=== PATIENT | female | born 1950 | race Caucasian/White ===

== ENCOUNTER → 2017-11-13 10:16 | Outpatient (CLI) | payer MEDICARE, MEDICAID, SELFPAY ==
[2017-11-13 11:05] LABS: Basophils # 0.1 K/mm3 (0-0.2); Eosinophils # 0.5 K/mm3 (0.0-0.4); Eosinophils % 5.5 % (0.1-12.0); Hematocrit 42.2 % (37.0-47.0); Hemoglobin 13.8 g/dL (12.2-16.2); Lymphocytes # 3.8 K/mm3 (0.7-4.5); Lymphocytes % 41.6 K/mm3 (10-50); Mean Corpuscular HGB Conc 32.7 g/dL (31.8-35.4); Mean Corpuscular Hemoglobin 30.1 pg (27.0-31.2); Mean Corpuscular Volume 92.2 fl (81-99); Mean Platelet Volume 9.2 fl (7.4-10.4); Monocytes # 0.4 K/mm3 (0.1-1.0); Monocytes % 4.6 % (1.7-9.3); Neutrophils # 4.3 K/mm3 (1.8-7.8); Neutrophils % 47.4 % (37.0-80.0); Platelet Count 239 K/mm3 (142-424); Red Blood Count 4.58 M/mm3 (4.20-5.40); Red Cell Distribution Width 13.1 % (11.5-17.5)
[2017-11-13 12:30] LABS: Alanine Aminotransferase 30 U/L (12-78); Albumin Level 3.9 gm/dL (3.4-5.0); Albumin/Globulin Ratio 1.1 (1.1-1.8); Alkaline Phosphatase 110 U/L (46-116); Anion Gap 10.2 mEq/L (5-15); Aspartate Amino Transferase 18 U/L (15-37); Bilirubin,Total 0.6 mg/dL (0.2-1.0); Blood Urea Nitrogen 23 mg/dL (7-18); Calcium 9.2 mg/dL (8.5-10.1); Carbon Dioxide 33 mmol/L (21.0-32.0); Chloride 106 mmol/L (98-107); Chol/HDL Ratio 3.5 (1-3.5); Cholesterol 162 mg/dL (140-200); Creatinine,Serum 1.18 mg/dL (0.55-1.02); Estimated Glomerular Filt Rate 46 ml/min (>60); GFR (African American) 55 ML/MIN (>60); Globulin 3.5 gm/dl (1.3-3.2); Glucose 104 mg/dL (74-106); HDL Cholesterol 46 mg/dL (29-89); LDL Cholesterol 85 mg/dL (0-130); Potassium 5.2 mmoL/L (3.5-5.1); Sodium 144 mmol/L (136-145); Thyroid Stimulating Hormone 1.16 uIU/ml (0.358-3.740); Total Protein,Serum 7.4 gm/dL (6.4-8.2); Triglycerides 155 mg/dL (30-200); VLDL Cholesterol 31 mg/dL (0-40)
[2017-11-13 12:42] LABS: Erythrocyte Sedimentation Rate 22 mm/hr (0-30)
== END ==
PROVIDERS: PCP Internal Medicine Adolescent Medicine; Visit Provider Internal Medicine Adolescent Medicine
DX: M10.9 Gout, unspecified (principal); E78.5 Hyperlipidemia, unspecified; Z79.899 Other long term (current) drug therapy; E03.9 Hypothyroidism, unspecified
CPT/HCPCS: 36415; 80053; 80061; 84443; 84550; 85025; 85651

== ENCOUNTER → 2018-03-15 09:59 | Outpatient (CLI) | payer MEDICARE, MEDICAID, SELFPAY ==
--- NOTE | 2018-03-15 10:43 | XR_ITS ---
XR knee LT 3V HISTORY: ITS.REASON: OSTEOARTHRITIS ORDERING PHYSICIAN: Neftaly Gloria MD PATIENT AGE: 67 years COMPARISON: None FINDINGS: No fracture or dislocation. No lytic or blastic change. Normal mineralization. No significant arthritic changes evident. No other significant findings IMPRESSION: Negative left Knee
--- NOTE | 2018-03-15 10:43 | XR_ITS ---
XR knee RT 3V HISTORY: ITS.REASON: OSTEOARTHRITIS ORDERING PHYSICIAN: Neftaly Gloria MD PATIENT AGE: 67 years COMPARISON: None FINDINGS: No fracture or dislocation. No lytic or blastic change. Normal mineralization. Minimal osteoarthritic changes present involving the medial compartment with slight decrease in joint space and minimal osteophyte formation. IMPRESSION: Minimal osteoarthritis medial compartment otherwise negative right knee
[2018-03-15 10:47] LABS: Basophils # 0.1 K/mm3 (0-0.2); Basophils % 0.8 % (0.1-2.0); Eosinophils # 0.5 K/mm3 (0.0-0.4); Eosinophils % 5.9 % (0.1-12.0); Hematocrit 43.6 % (37.0-47.0); Hemoglobin 13.6 g/dL (12.2-16.2); Lymphocytes # 3.1 K/mm3 (0.7-4.5); Lymphocytes % 38.1 K/mm3 (10-50); Mean Corpuscular HGB Conc 31.2 g/dL (31.8-35.4); Mean Corpuscular Volume 92.8 fl (81-99); Mean Platelet Volume 8.6 fl (7.4-10.4); Monocytes # 0.5 K/mm3 (0.1-1.0); Monocytes % 6.6 % (1.7-9.3); Neutrophils % 48.6 % (37.0-80.0); Platelet Count 220 K/mm3 (142-424); Red Cell Distribution Width 13.1 % (11.5-17.5); White Blood Count 8.1 K/mm3 (4.8-10.8)
[2018-03-15 11:53] LABS: Alanine Aminotransferase 28 U/L (12-78); Albumin Level 3.8 gm/dL (3.4-5.0); Albumin/Globulin Ratio 1.1 (1.1-1.8); Alkaline Phosphatase 111 U/L (46-116); Anion Gap 11.5 mEq/L (5-15); Aspartate Amino Transferase 19 U/L (15-37); Bilirubin,Total 0.5 mg/dL (0.2-1.0); Blood Urea Nitrogen 20 mg/dL (7-18); Calcium 9.4 mg/dL (8.5-10.1); Carbon Dioxide 31 mmol/L (21.0-32.0); Chloride 106 mmol/L (98-107); Chol/HDL Ratio 4.2 (1-3.5); Cholesterol 191 mg/dL (140-200); Estimated Glomerular Filt Rate 50 ml/min (>60); GFR (African American) 60 ML/MIN (>60); Globulin 3.4 gm/dl (1.3-3.2); Glucose 102 mg/dL (74-106); HDL Cholesterol 46 mg/dL (29-89); LDL Cholesterol 111 mg/dL (0-130); Potassium 4.5 mmoL/L (3.5-5.1); Sodium 144 mmol/L (136-145); Thyroid Stimulating Hormone 2.28 uIU/ml (0.358-3.740); Total Protein,Serum 7.2 gm/dL (6.4-8.2); Triglycerides 172 mg/dL (30-200); Uric Acid 6.3 mg/dL (2.6-7.2); VLDL Cholesterol 34 mg/dL (0-40)
== END ==
PROVIDERS: Visit Provider Internal Medicine Adolescent Medicine
DX: E78.5 Hyperlipidemia, unspecified (principal); E03.9 Hypothyroidism, unspecified; M10.9 Gout, unspecified; M17.0 Bilateral primary osteoarthritis of knee; N28.9 Disorder of kidney and ureter, unspecified
CPT/HCPCS: 36415; 73562; 80053; 80061; 84443; 84550; 85025

== ENCOUNTER 2018-04-30 13:00 | Outpatient (RCR) | payer MEDICARE, MEDICAID, SELFPAY ==
--- NOTE | 2018-03-17 10:41 | HMH.PTOPEV ---
PT Outpatient Evaluation Rehab PT Outpatient Evaluation Start: 03/17/18 09:35 Freq: Status: Active Protocol: Document 03/17/18 10:27 FLORENTINO (Rec: 03/17/18 10:41 PHORNICOLE [id number]) Electronically Signed By Johnny Lynch, PT 03/17/18 10:27 Outpatient Therapy Subjective History Subjective History PT is 67 yof who presents with c/o pain in left knee with walking intermittently x ~ 4 mos with insidious onset of symptoms. Pt reports pain began the second day of a cruise I went on with my daughter. Pt reports pain almost exclusively with walking, but only sometimes. X -rays performed were negative for any left knee OA or fxs. She reports PMH of L5 discectomy ~ 20 yrs ago, HTN, A-fib, and thyroid cancer. Pt given heel lift for right LE due to left LE long by 7 mm . Chief Complaint Pain Symptom Type Sharp Symptoms Relieved By Rest/Positioning Symptoms Aggravated By Walking Prior Functional Limitations None Current Functional Limitations Walking Symptom Description Intermittent Activity Dependent Level of pain today (0-10) 0 Pain scale - at its worst (0-10) 8 Hip/Knee Eval Gait Observation General Gait Pattern Observation Antalgic Gait Palpation Tenderness left Knee Palpation Finding Tenderness Knee Palpation Overall Comment medial knee and greater trochanter Hip Palpation Findings Tenderness MMT right Hip Flexion Strength Grade 3 Fair Hip Abduction Strength Grade 4 Good Hip Adduction Strength Grade 4 Good Hip Extension Strength Grade 4 Good left Hip Flexion Strength Grade 4 Good Hip Abduction Strength Grade 4 Good Hip Adduction Strength Grade 4 Good Hip Extension Strength Grade 4 Good Knee Extension Strength Grade 5 Normal Knee Flexion Strength Grade 4 Good ROM Knee Flexion Active Range of Motion ( 0-110 degrees) Sensation bilateral LE Dermatome Level L5 Comment decreased Special Tests Knee Anterior Drawer Test Negative Left Stephens 90/90 Test (PCL) Negative Left Knee Anterior Isai Test Negative Left Knee Valgus Stress Test Ne
== END 2018-04-30 13:01 | disposition home or self-care (01) ==
LOC: PT 13:00
PROVIDERS: PCP Internal Medicine Adolescent Medicine; Visit Provider Internal Medicine Adolescent Medicine
DX: M25.562 Pain in left knee (principal)
CPT/HCPCS: 97010; 97014; 97033; 97110; 97140; 97163; 97760; G0283

== ENCOUNTER → 2018-08-16 19:56 | Outpatient (CLI) | payer MEDICARE, MEDICAID, SELFPAY | PROVIDERS: PCP Internal Medicine Adolescent Medicine; Visit Provider Internal Medicine Adolescent Medicine | DX: G47.33 Obstructive sleep apnea (adult) (pediatric) (principal); R06.83 Snoring; R40.0 Somnolence | CPT/HCPCS: 95810 ==

== ENCOUNTER → 2019-05-10 08:44 | Outpatient (CLI) | payer MEDICARE, MEDICAID, SELFPAY ==
--- NOTE | 2019-05-10 08:49 | XR_ITS ---
XR DEXA axial skeleton HISTORY: ITS.REASON: POST MENOPAUSAL ORDERING PHYSICIAN: Neftaly Gloria MD PATIENT AGE: 69 years COMPARISON: None FINDINGS: The BMD measured at the Right femoral neck is 1.032 g/cm squared with a T score of 0. This is considered Normal according to the World Health Organization criteria. Fracture risk is Low. IMPRESSION: Normal bone density. Recommend follow-up exam April 2021
--- NOTE | 2019-05-10 08:50 | MM_ITS ---
MM Dig screening mamm BI w/CAD CAD Screening COMPARISON: Digital mammograms with CAD 04/24/2017 INDICATION: There is no personal or family history of breast cancer. There has been previous biopsy left breast for benign disease. TECHNIQUE: Standard CC and MLO images were obtained. R2 CAD reviewed. FINDINGS: Scattered fibroglandular densities are seen in both breasts. There are stable somewhat linear and likely post biopsy scarring upper central portion left breast. There are multiple mole markers left breast. There is minimal arterial calcification right breast and there are couple benign-appearing calcifications right breast. There is no suspicious lesion and no suspicious microcalcifications. IMPRESSION: Fibrofatty parenchyma no suspicious lesion seen BI-RADS Category: 2 Benign Finding(s) RECOMMENDED FOLLOW-UP: 1YR - 1 YEAR FOLLOW-UP (A letter has been sent to the patient regarding results of the study.)
== END ==
PROVIDERS: PCP Internal Medicine Adolescent Medicine; Visit Provider Internal Medicine Adolescent Medicine
DX: Z12.31 Encounter for screening mammogram for malignant neoplasm of breast (principal); Z13.820 Encounter for screening for osteoporosis; Z78.0 Asymptomatic menopausal state
CPT/HCPCS: 77067; 77080

== ENCOUNTER → 2019-12-29 07:27 | Outpatient (CLI) | payer MEDICARE, MEDICAID, SELFPAY ==
[2019-12-29 07:53] LABS: Basophils # 0.1 K/mm3 (0-0.2); Basophils % 0.8 % (0.1-2.0); Eosinophils # 0.5 K/mm3 (0.0-0.4); Eosinophils % 4.8 % (0.1-12.0); Hematocrit 39.2 % (37.0-47.0); Hemoglobin 12.8 g/dL (12.2-16.2); Lymphocytes # 3.7 K/mm3 (0.7-4.5); Lymphocytes % 35.6 % (10-50); Mean Corpuscular HGB Conc 32.7 g/dL (31.8-35.4); Mean Corpuscular Hemoglobin 30.4 pg (27.0-31.2); Mean Corpuscular Volume 93.2 fl (81-99); Mean Platelet Volume 10.4 fl (7.4-10.4); Monocytes # 0.6 K/mm3 (0.1-1.0); Monocytes % 5.2 % (1.7-9.3); Neutrophils # 5.6 K/mm3 (1.8-7.8); Neutrophils % 53.4 % (37.0-80.0); Platelet Count 231 K/mm3 (142-424); Red Blood Count 4.21 M/mm3 (4.20-5.40); Red Cell Distribution Width 14.1 % (11.5-17.5); White Blood Count 10.4 K/mm3 (4.8-10.8)
[2019-12-29 08:14] LABS: Alanine Aminotransferase 24 U/L (12-78); Albumin/Globulin Ratio 1.4 (1.1-1.8); Alkaline Phosphatase 109 U/L (38-126); Anion Gap 11.8 mEq/L (5-15); Aspartate Amino Transferase 31 U/L (14-36); Bilirubin,Total 0.4 mg/dl (0.2-1.3); Blood Urea Nitrogen 28 mg/dl (7-17); Calcium 9.6 mg/dl (8.4-10.2); Carbon Dioxide 28 mmol/L (22.0-30.0); Chloride 105 mmol/L (98-107); Chol/HDL Ratio 4.3 (1-3.5); Cholesterol 165 mg/dl (140-200); Estimated Glomerular Filt Rate 45 ml/min (>60); GFR (African American) 54 ML/MIN (>60); Globulin 2.8 g/dL (1.3-3.2); Glucose 107 mg/dl (74-100); HDL Cholesterol 38 mg/dl (40-60); Potassium 4.8 mmoL/L (3.5-5.1); Sodium 140 mmol/L (136-145); Total Protein,Serum 6.8 g/dl (6.3-8.2); Triglycerides 325 mg/dl (30-150); Uric Acid 4.5 mg/dl (2.5-6.2); VLDL Cholesterol 65 mg/dL (0-40)
[2019-12-29 08:25] LABS: Direct LDL Cholesterol 75.88 mg/dL (100-129)
[2019-12-29 08:44] LABS: Thyroid Stimulating Hormone 0.15 uIU/mL (0.465-4.68)
== END ==
PROVIDERS: Visit Provider Internal Medicine Adolescent Medicine
DX: E78.5 Hyperlipidemia, unspecified (principal); E03.9 Hypothyroidism, unspecified; M10.9 Gout, unspecified
CPT/HCPCS: 36415; 80053; 80061; 84443; 84550; 85025

== ENCOUNTER → 2020-09-03 16:16 | Outpatient (CLI) | payer MEDICARE, MEDICAID, SELFPAY ==
--- NOTE | 2020-09-03 16:18 | MM_ITS ---
PROCEDURE: MM DIG SCREENING MAMM BI W/CAD Digital Breast Tomosynthesis Included CLINICAL INDICATION: SCREENING Personal or family history of breast cancer. Has been a previous biopsy left breast disease. COMPARISON: MG [id number] DIG MAMM-DX UNI ADD VIEWS-RT from 08/10/2015 MG DMSB DIG MAMM-SCREEN KRYSTINA W/CAD from 04/24/2017 MG DIG MAMM-SCREEN KRYSTINA from 05/10/2019 TECHNIQUE: Standard CC and MLO images and 3D Tomosynthesis was obtained. R2 CAD reviewed. FINDINGS: Scattered fibroglandular densities are seen throughout both breasts. There are 2 mole markers on each breast. There is a benign-appearing microcalcification right breast. There is no suspicious lesion in either breast and no suspicious microcalcifications. IMPRESSION: Fibrofatty parenchyma with no suspicious lesions seen BI-RAD Category: 2 Benign Finding(s) FOLLOW-UP: 1YR 1 Year Follow-up (A letter has been sent to the patient regarding results of the study.) Dictated by: Dr. Romulo Azevedo MD 09/07/2020 14:44 Dr. Romulo Azevedo MD in [place] 09/07/2020 14:44
== END ==
PROVIDERS: PCP Internal Medicine Adolescent Medicine; Visit Provider Internal Medicine Adolescent Medicine
DX: Z12.31 Encounter for screening mammogram for malignant neoplasm of breast (principal)
CPT/HCPCS: 77063; 77067

== ENCOUNTER → 2020-10-17 10:03 | Outpatient (CLI) | payer MEDICARE, MEDICAID, SELFPAY | PROVIDERS: PCP Internal Medicine Adolescent Medicine; Referring Provider Internal Medicine Adolescent Medicine; Visit Provider Internal Medicine Adolescent Medicine | DX: Z03.818 Encounter for observation for suspected exposure to other biological agents ruled out (principal) | CPT/HCPCS: U0003 ==

== ENCOUNTER 2020-12-13 19:49 | Emergency (ER) | payer MEDICARE, MEDICAID, SELFPAY ==
[2020-12-13 19:51] VITALS: BP 168/84; PULSE 62; RESP 20; TEMP 36.7; O2SAT 99; BMI 36.6
--- NOTE | 2020-12-13 20:20 | XR_ITS ---
PROCEDURE: XR FEMUR RT 2V CLINICAL INDICATION: right leg trauma Pain COMPARISON: CR XR HIP RT 2-3V W/PELVIS from 12/13/2020 FINDINGS: There are moderate osteoarthritic changes of the right hip. No acute fracture or dislocation evident of the femur. May frontal view of the pelvis shows bilateral osteoarthritic change of the hips. Subcortical cyst is present in the acetabular roof on the right. Other findings:None. IMPRESSION: Osteoarthritic changes otherwise negative. No acute fracture Dictated by: Amadeo Choi MD 12/14/2020 05:26 Amadeo Choi MD in [place] 12/14/2020 05:26
--- NOTE | 2020-12-13 20:20 | XR_ITS ---
PROCEDURE: XR KNEE RT 3V CLINICAL INDICATION: right leg trauma Posttraumatic pain COMPARISON: CR [id number] XR knee LT 3V from 03/15/2018 CR [id number] XR knee RT 3V from 03/15/2018 CR XR FEMUR RT 2V from 12/13/2020 FINDINGS: There is a faint longitudinal oriented lucency along the superior aspect of the patella. This could be due to nondisplaced fracture or overlying Mach line. Please correlate with patient's area of pain and tenderness. There are mild osteoarthritic changes of the knee. IMPRESSION: Possible nondisplaced patellar fracture. CT may confirm if clinically warranted. Dictated by: Amadeo Choi MD 12/14/2020 05:24 Amadeo Choi MD in [place] 12/14/2020 05:24
[2020-12-13 20:21] VITALS: BP 147/70; PULSE 63; O2SAT 100
--- NOTE | 2020-12-13 20:37 | HMH.EDGENADL ---
ED Disposition Clinical Impression: Right hip pain, Facial abrasion Disposition: Home, Self-Care Condition on Discharge: Good Additional Instructions: Return the emergency room for increased difficulty walking worsening pain or any other concerns within the next 8 hours otherwise follow-up with your primary care physician within the next few days Prescriptions: Hydrocod/Acet 5/325 mg [[place] 5/325mg tablet] 1 tab PO TID PRN #12 tab PRN Reason: Mild Pain Transmission Status: Sent to [id number] Referrals: Neftaly Gloria MD [Primary Care Provider] - - Critical Care Critical Care Time: No Attestation: On 12/13/20, the high probability of a clinically significant, sudden or life threatening deterioration of the following system(s) required my full and direct attention, intervention and personal management. The time I documented below is in addition to time spent performing reported procedures but includes the following listed in this critical care notation. Medical Decision Making - Medical Records Medical records reviewed: Yes: I reviewed the patient's medical records. - Lukasz Inquiry Pt receiving controlled substance: No Vital Signs: 12/13/20 19:51 12/13/20 20:21 12/13/20 21:04 Temperature 98.1 F Temperature Source Oral Pulse Rate [Right Brachial] 62 63 68 Respiratory Rate 20 Blood Pressure [Right Arm] 168/84 H 147/70 H 162/82 H Blood Pressure Mean [Right Arm] 112 95 108 Blood Pressure Source [Right Arm] Automatic Cuff Automatic Cuff Automatic Cuff Blood Pressure Position [Right Arm] Supine 02 Sat by Pulse Oximetry 99 100 99 Oxygen Delivery Method Room Air Room Air Room Air Orders (Tests/Meds): ED MEDICATIONS Discontinued Medications Generic Name Dose Route Start Last Admin Trade Name Freq PRN Reason Stop Dose Admin Morphine Sulfate 4 mg 12/13/20 20:20 12/13/20 20:30 Morphine 10mg/Ml Syringe IM 12/13/20 20:21 4 mg ONCE ONE Administration ORDERS Category Date Time Status XR femur RT 2V Stat Exams 12/13/20 20:20 Taken XR hip RT 2-3V w/pelvis Stat Exams 12/13/20 20:20 Taken XR knee RT 3V Stat Exams 12/13/20 20:20 Taken Medical Decision Narrative: 70-year-old female with fall from standing, mechanical fall. Has normal neurological exam and negative Nexus criteria for cervical spine injury. Negative for [place] CT head rule as well. No concern for abdominal or chest trauma on exam. Tetanus is up-to-date. Offered pain medicine and she requested IM shot, has tenderness to right hip, x-ray obtained I read the femur x-ray the x-ray and hip x-ray myself, I did not identify any significant fractures and there was chronic arthritis findings on the knee and the hip. The patient was able to ambulate to the restroom at her baseline and she does have a cane at home. Plan to discharge with return precautions and follow-up recommendations General Adult HPI - General Chief complaint: Fall Stated complaint: AO [id number] injured facial injuries, R Leg Time Seen by Provider: 12/13/20 19:50 Mode of Arrival: Wheelchair Limitations: Physical Limitations Description of Symptoms (Recalled from ER Triage Doc. by RN): Pt c/o fall with no LOC. Pt stated she was walking on concrete when she tripped and fell hitting her face. Pt c/o of pain to R hip that radiates down bnelow right knee. Pt also reports this is her problem knee . Pt is able to stand from wheelchair to bed with partial weight bearing. Pt denies any numbness or tingling and is able to move toes limb with some pain. - History of Present Illness HPI narrative: 70-year-old female presents with fall from standing. She says she was walking and tripped and had a mechanical fall. She denies loss of consciousness, headache nausea vomiting numbness weakness or tingling in arms or legs. She has an abrasion to her forehead however no changes in vision, no neck pain chest pain or abdominal pain. She says she h
[2020-12-13 21:04] VITALS: BP 162/82; PULSE 68; O2SAT 99
--- NOTE | 2020-12-13 21:54 | PC.NURSE ---
pt was able to transfer from bed and walk 20 ft to bathroom with assistance.
[2020-12-13 22:15] VITALS: BP 159/78; PULSE 67; RESP 18; TEMP 36.7; O2SAT 99
== END 2020-12-13 22:30 | disposition home or self-care (01) ==
PROVIDERS: Emergency Provider Emergency Medicine; PCP Internal Medicine Adolescent Medicine
DX: S00.81XA Abrasion of other part of head, initial encounter (principal); W01.0XXA Fall on same level from slipping, tripping and stumbling without subsequent striking against object, initial encounter; Y92.89 Other specified places as the place of occurrence of the external cause; I48.91 Unspecified atrial fibrillation; K21.9 Gastro-esophageal reflux disease without esophagitis; I10 Essential (primary) hypertension; E78.5 Hyperlipidemia, unspecified; Z79.899 Other long term (current) drug therapy; Z23 Encounter for immunization
CPT/HCPCS: 73502; 73552; 73562; 90471; 99283

== ENCOUNTER → 2021-03-04 10:45 | Outpatient (CLI) | payer MEDICARE, SELFPAY ==
[2021-03-04 11:07] LABS: Basophils # 0.1 K/mm3 (0-0.2); Basophils % 0.8 % (0.1-2.0); Eosinophils # 0.3 K/mm3 (0.0-0.4); Eosinophils % 3.9 % (0.1-12.0); Hematocrit 40.6 % (37.0-47.0); Hemoglobin 13.6 g/dL (12.2-16.2); Lymphocytes # 3.4 K/mm3 (0.7-4.5); Lymphocytes % 40.1 % (10-50); Mean Corpuscular HGB Conc 33.5 g/dL (31.8-35.4); Mean Corpuscular Hemoglobin 30.2 pg (27.0-31.2); Mean Corpuscular Volume 90.1 fl (81-99); Monocytes # 0.4 K/mm3 (0.1-1.0); Monocytes % 5.1 % (1.7-9.3); Neutrophils # 4.2 K/mm3 (1.8-7.8); Platelet Count 241 K/mm3 (142-424); Red Blood Count 4.51 M/mm3 (4.20-5.40); Red Cell Distribution Width 14.5 % (11.5-17.5); White Blood Count 8.4 K/mm3 (4.8-10.8)
[2021-03-04 12:16] LABS: Alanine Aminotransferase 22 U/L (12-78); Albumin Level 4.3 g/dl (3.5-5.0); Albumin/Globulin Ratio 1.5 (1.1-1.8); Alkaline Phosphatase 112 U/L (38-126); Anion Gap 9.6 mEq/L (5-15); Aspartate Amino Transferase 29 U/L (14-36); Bilirubin,Total 0.8 mg/dl (0.2-1.3); Blood Urea Nitrogen 25 mg/dl (7-17); Calcium 9.3 mg/dl (8.4-10.2); Carbon Dioxide 30 mmol/L (22.0-30.0); Chloride 105 mmol/L (98-107); Cholesterol 173 mg/dl (140-200); Estimated Glomerular Filt Rate 40 ml/min (>60); GFR (African American) 49 ML/MIN (>60); Globulin 2.9 g/dL (1.3-3.2); Glucose 101 mg/dl (74-100); HDL Cholesterol 43 mg/dl (40-60); Potassium 4.6 mmoL/L (3.5-5.1); Sodium 140 mmol/L (136-145); Total Protein,Serum 7.2 g/dl (6.3-8.2); Triglycerides 236 mg/dl (30-150); VLDL Cholesterol 47 mg/dL (0-40)
[2021-03-04 12:29] LABS: Direct LDL Cholesterol 87.54 mg/dL (100-129)
[2021-03-04 12:35] LABS: 25-OH Vitamin D, Total 40.7 ng/mL (30-100)
== END ==
PROVIDERS: Visit Provider Internal Medicine Adolescent Medicine
DX: E03.9 Hypothyroidism, unspecified (principal); E78.5 Hyperlipidemia, unspecified; M10.9 Gout, unspecified; Z68.38 Body mass index [BMI] 38.0-38.9, adult
CPT/HCPCS: 36415; 80053; 80061; 82306; 84550; 85025

== ENCOUNTER → 2021-04-01 10:01 | Outpatient (CLI) | payer MEDICARE, SELFPAY | PROVIDERS: Visit Provider Surgery | DX: Z01.812 Encounter for preprocedural laboratory examination (principal); Z20.822 Contact with and (suspected) exposure to COVID-19; Z13.810 Encounter for screening for upper gastrointestinal disorder | CPT/HCPCS: U0003 ==

== ENCOUNTER 2021-04-03 09:34 | Day surgery (SDC) | payer MEDICARE, SELFPAY ==
[2021-04-01 10:09] VITALS: BMI 41.5
[2021-04-03 09:53] VITALS: BP 138/72; PULSE 65; RESP 18; TEMP 36.5; O2SAT 97
--- NOTE | 2021-04-03 10:09 | P.PN_ITS ---
[facility] Anesthesia Checklist - Patient Identification Patient Identification: Arm Band - Structural Data Admitted From: Home Planned Operative Procedure/s: egd Consent for Planned Operative Procedure(s) Verified: Yes Verified Documents: Surgical Consent, History and Physical - NPO Status Verified Time NPO: 00:00 - Additional verifications Anesthesia Reactions: No - Airway Assessment C-Spine Mobility Assessed: Yes (mp2) TMJ Mobility Assessed: Yes Dentition: Good Dentition - Neurological Assessment Level of Consciousness: Awake, Alert - Anesthesia Plan Anesthesia Risk discussed: Yes Anesthesia Plan: Verified ASA Class: III Anesthesia Type: MAC [facility] History I have reviewed the patient's past medical history: Yes Medical History: Reports:: Arrhythmia, Atrial Fibrillation, Cancer (thyroid), Gastroesophageal Reflux Disease(GERD), Hyperlipidemia, Hypertension Denies:: Diabetes Mellitus Type 1, Diabetes Mellitus Type 2, Internal Pacemaker, Lung Disease, MRSA, Seizures *Have you ever received a pneumonia vaccine?: Yes *Have you received a flu vaccine this season?: Yes Other Medical History: Reports: Arthritis, Thyroid Disease Anesthesia experience/problems:: nac Laterality Cases: Left: Lumpectomy Other Surgeries: Yes: Cancer Surgery, Cholecystectomy, Colonoscopy, T hyroidectomy, Tubal Ligation. No: Pacemaker Amputation: No Fractures: Yes - *Social History Last grade of school completed: High school graduate Smoking Status: Never smoker Alcohol Intake: never Substance Use Type: denies use *Occupational Status:: retired Housing: house Household Members: spouse *Travel in the last 8 weeks: None Family Hx:: Coronary Artery Disease, Heart Attack, Stroke
--- NOTE | 2021-04-03 10:35 | HMH.SCOPE ---
- Procedure: Date: 04/03/21 Patient Date of :: 1950 Procedure Performed:: Esophagogastroduodenoscopy with biopsies and polypectomy Indications:: Patient is a 70-year-old female referred by Dr. Neftaly Gloria for upper endoscopy. She does state that she had a previous upper endoscopy in 1994. Recently she has had symptoms for which she describes that she has to keep clearing her throat of mucousy-like material. She does occasionally have symptoms of epigastric pain radiating into her throat and into her ears. She describes this as an acid burning type of pain. She has been on omeprazole for several years and states that this was recently increased from 20 mg once daily to 40 mg once daily and then to 40 mg twice daily. Occasionally her symptoms are brought on by food intake. Performing Provider:: Benito Ortiz MD Referring Provider:: Neftaly Gloria MD Sedation:: MAC sedation Procedure:: Consent was obtained patient was taken to endoscopy procedure room. She was positioned in lateral decubitus position. Adequate intravenous sedation was achieved with anesthesia titration of propofol. Olympus endoscope was inserted via the oropharynx. Is advanced to the esophagus. She had some tortuosity to the esophagus but overall appeared relatively unremarkable. Gastroesophageal junction was encountered at approximately 37 cm from the incisors. Stomach was cannulated and insufflated. Retroflexion revealed no evidence of any significant hiatal hernia. She did have several polyps, possibly fundic gland polyps larger of which were in the proximal stomach. 1 of these was removed with cold biopsy forceps. The 2 of the larger were removed with cold cutting snare. The largest required maceration and retrieval using Peralta net. Gastric antral mucosal biopsies obtained for CLOtest for H. pylori. Pylorus was traversed and the duodenal bulb and duodenal sweep appeared unremarkable. Endoscope was withdrawn into the gastric lumen. Gastric mucosal biopsies obtained. Stomach was desufflated and scope was withdrawn. Findings:: Gastric polyps Recommendations:: Plan to follow-up on the histopathology and H. pylori status. Treat H. pylori if positive. Portion of her symptoms may be pulmonary or airway related as she does seem to have appreciable obstructive sleep apnea. Complications:: None immediately apparent Estimated blood obtained (mL): 2
[2021-04-03 10:44] VITALS: BP 97/68; PULSE 60; RESP 14; TEMP 36.5; O2SAT 95
[2021-04-03 10:45] VITALS: BP 113/57; PULSE 61; RESP 16; TEMP 36.5; O2SAT 98
[2021-04-03 10:55] VITALS: BP 110/74; PULSE 55; RESP 16; TEMP 36.5; O2SAT 98
[2021-04-03 11:05] VITALS: BP 118/63; PULSE 55; RESP 16; TEMP 36.5; O2SAT 97
== END 2021-04-03 11:14 | disposition home or self-care (01) ==
LOC: OUTP 09:37
PROVIDERS: PCP Internal Medicine Adolescent Medicine; Visit Provider Surgery
PROC: 0DJ08ZZ Inspection of Upper Intestinal Tract, Via Natural or Artificial Opening Endoscopic (ICD-10-PCS; CPT 43235; principal; 2021-04-03 10:30)
DX: K31.7 Polyp of stomach and duodenum (principal); I48.91 Unspecified atrial fibrillation; K21.9 Gastro-esophageal reflux disease without esophagitis; I10 Essential (primary) hypertension; E78.5 Hyperlipidemia, unspecified; I49.9 Cardiac arrhythmia, unspecified; Z85.850 Personal history of malignant neoplasm of thyroid; Z90.49 Acquired absence of other specified parts of digestive tract; Z82.49 Family history of ischemic heart disease and other diseases of the circulatory system; Z82.3 Family history of stroke; Z79.899 Other long term (current) drug therapy
CPT/HCPCS: 43251; 87339; 88305; 88342

== ENCOUNTER → 2021-04-19 10:26 | Outpatient (CLI) | payer MEDICARE, SELFPAY ==
--- NOTE | 2021-04-19 10:33 | XR_ITS ---
PROCEDURE: XR HIP LT 2-3V W/PELVIS CLINICAL INDICATION: BL knee pain Hip pain COMPARISON: CR XR HIP RT 2-3V W/PELVIS from 12/13/2020 FINDINGS: There are severe osteoarthritic changes of the left hip. No acute fracture or dislocation. No lytic or blastic change. Overall not significantly changed. IMPRESSION: Severe osteoarthritis of the left hip Dictated by: Amadeo Choi MD 04/19/2021 11:30 Amadeo Choi MD in [place] 04/19/2021 11:30
--- NOTE | 2021-04-19 10:33 | XR_ITS ---
PROCEDURE: XR KNEE LT 4V CLINICAL INDICATION: BL Knee pain COMPARISON: CR [id number] XR knee LT 3V from 03/15/2018 CR [id number] XR knee RT 3V from 03/15/2018 CR XR KNEE RT 3V from 12/13/2020 FINDINGS: No fracture or dislocation. No lytic or blastic change. There is normal mineralization. Slight decrease in the joint space medially and at the patellofemoral joint suggesting minimal osteoarthritic change with minimal spurring of the patella laterally. Other findings:None. IMPRESSION: Minimal osteoarthritic change. Dictated by: Amadeo Choi MD 04/19/2021 11:27 Amadeo Choi MD in [place] 04/19/2021 11:27
--- NOTE | 2021-04-19 10:33 | XR_ITS ---
PROCEDURE: XR HIP RT 2-3V W/PELVIS CLINICAL INDICATION: BL knee pain Hip pain COMPARISON: CR XR HIP RT 2-3V W/PELVIS from 12/13/2020 FINDINGS: Severe osteoarthritic changes are present involving the right hip not significantly changed from 12/13/2020. No acute fracture or dislocation is evident. Subchondral cystic changes are present in the acetabular roof IMPRESSION: Severe osteoarthritis of the right hip Dictated by: Amadeo Choi MD 04/19/2021 11:29 Amadeo Choi MD in [place] 04/19/2021 11:29
--- NOTE | 2021-04-19 10:33 | XR_ITS ---
PROCEDURE: XR KNEE RT 4V CLINICAL INDICATION: BL knee pain COMPARISON: CR [id number] XR knee LT 3V from 03/15/2018 CR [id number] XR knee RT 3V from 03/15/2018 CR XR KNEE RT 3V from 12/13/2020 FINDINGS: No fracture or dislocation. No lytic or blastic change. There is normal mineralization. Mild osteoarthritic change medial compartment and patellofemoral joint. Other findings:None. IMPRESSION: Mild osteoarthritis not significantly changed. Previously noted lucency along the superior aspect of the patella no longer apparent however the images are somewhat different in positioning. Dictated by: Amadeo Choi MD 04/19/2021 11:28 Amadeo Choi MD in [place] 04/19/2021 11:28
== END ==
PROVIDERS: PCP Internal Medicine Adolescent Medicine; Visit Provider Orthopaedic Surgery
DX: M25.561 Pain in right knee (principal); M25.562 Pain in left knee
CPT/HCPCS: 73502; 73564

== ENCOUNTER → 2021-07-04 10:35 | Outpatient (CLI) | payer MEDICARE, SELFPAY ==
[2021-07-04 11:45] LABS: Chloride 105 mmol/L (98-107); Potassium 4.7 mmoL/L (3.5-5.1); Sodium 145 mmol/L (136-145)
[2021-07-04 11:48] LABS: Anion Gap 15.7 mEq/L (5-15); Blood Urea Nitrogen 20 mg/dl (7-17); Carbon Dioxide 29 mmol/L (22.0-30.0); Estimated Glomerular Filt Rate 44 ml/min (>60); GFR (African American) 54 ML/MIN (>60)
[2021-07-04 11:49] LABS: Calcium 9.2 mg/dl (8.4-10.2); Glucose 107 mg/dl (74-100)
[2021-07-04 12:20] LABS: Thyroid Stimulating Hormone 0.15 uIU/mL (0.465-4.68)
== END ==
PROVIDERS: Visit Provider Internal Medicine Adolescent Medicine
DX: E03.9 Hypothyroidism, unspecified (principal); I10 Essential (primary) hypertension
CPT/HCPCS: 36415; 80048; 84443

== ENCOUNTER → 2021-09-12 11:24 | Outpatient (CLI) | payer MEDICARE, SELFPAY ==
[2021-09-12 11:26] LABS: Microscopic, Urine URINE MICROSCOPIC (MICROSCOPIC)
--- NOTE | 2021-09-12 12:02 | XR_ITS ---
PROCEDURE: XR HIP RT 2-3V W/PELVIS CLINICAL INDICATION: right hip preop COMPARISON: CR XR HIP RT 2-3V W/PELVIS from 04/19/2021 CR XR HIP LT 2-3V W/PELVIS from 04/19/2021 FINDINGS: There is severe osteoarthritic changes involving both hips as seen on the AP view of the pelvis. There is decrease in the joint space with osteophyte formation. There is mild flattening of the left femoral head laterally. No acute fracture or dislocation. Osteosclerosis noted at the symphysis pubis. Degenerative changes in the lower lumbar spine. Lucency is noted in the right super acetabular region and may represent a prominent subcortical cyst at approximately 2.[address] may confirm. No acute fracture or dislocation. Lucency is noted over the posterior aspect of the acetabulum superiorly suggesting an os acetabulum IMPRESSION: No significant change. No acute fracture. Severe osteoarthritis of the hips. Lucency in the right super acetabular region consistent with a geode. CT may confirm. Dictated by: Amadeo Choi MD 09/12/2021 12:46 Amadeo Choi MD in [place] 09/12/2021 12:46
--- NOTE | 2021-09-12 12:02 | XR_ITS ---
PROCEDURE: XR CHEST 2V CLINICAL HISTORY: preop; right total hip; hypertension COMPARISON: CR CXR CHEST(2 VIEWS-NOT PORTABLE) from 06/10/2016 FINDINGS: Borderline cardiomegaly without failure. The lungs are clear without infiltrates, suspicious nodules, or pleural effusions. Mild degenerative changes thoracic spine. IMPRESSION: Borderline cardiomegaly. No change with no acute finding Dictated by: Amadeo Choi MD 09/12/2021 12:48 Amadeo Choi MD in [place] 09/12/2021 12:48
--- NOTE | 2021-09-12 12:29 | ECG_ITS ---
APPROVED REPORT Exam: Resting ECG HR:55 bpm ECG Measurements Heart Rate 55 AXES WY 166 P 6 QRSd 90 QRS 5 QT 462 T 21 QTc 441 Conclusion Sinus bradycardia Otherwise normal ECG Electronically signed by : Neftaly Gloria MD 09/12/2021 20:18:59
[2021-09-12 12:33] LABS: Basophils # 0.2 K/mm3 (0-0.2); Basophils % 1.9 % (0.1-2.0); Eosinophils # 0.4 K/mm3 (0.0-0.4); Eosinophils % 3.8 % (0.1-12.0); Hematocrit 39.8 % (37.0-47.0); Hemoglobin 13.5 g/dL (12.2-16.2); Lymphocytes % 35.4 % (10-50); Mean Corpuscular HGB Conc 33.9 g/dL (31.8-35.4); Mean Corpuscular Hemoglobin 30.8 pg (27.0-31.2); Mean Corpuscular Volume 90.9 fl (81-99); Mean Platelet Volume 10.1 fl (7.4-10.4); Monocytes # 0.8 K/mm3 (0.1-1.0); Monocytes % 6.8 % (1.7-9.3); Neutrophils # 5.8 K/mm3 (1.8-7.8); Platelet Count 275 K/mm3 (142-424); Red Blood Count 4.38 M/mm3 (4.20-5.40); Red Cell Distribution Width 14.7 % (11.5-17.5); White Blood Count 11.1 K/mm3 (4.8-10.8)
[2021-09-12 13:32] LABS: Chloride 103 mmol/L (98-107); Potassium 4.8 mmoL/L (3.5-5.1); Sodium 140 mmol/L (136-145)
[2021-09-12 13:34] LABS: Blood Urea Nitrogen 25 mg/dl (7-17); Estimated Glomerular Filt Rate 44 ml/min (>60); GFR (African American) 54 ML/MIN (>60)
[2021-09-12 13:35] LABS: Alanine Aminotransferase 22 U/L (12-78); Albumin Level 4.2 g/dl (3.5-5.0); Albumin/Globulin Ratio 1.5 (1.1-1.8); Alkaline Phosphatase 122 U/L (38-126); Anion Gap 12.8 mEq/L (5-15); Aspartate Amino Transferase 36 U/L (14-36); Bilirubin,Total 0.6 mg/dl (0.2-1.3); Carbon Dioxide 29 mmol/L (22.0-30.0); Globulin 2.8 g/dL (1.3-3.2)
[2021-09-12 13:36] LABS: Calcium 9.3 mg/dl (8.4-10.2); Glucose 84 mg/dl (74-100)
[2021-09-12 14:19] LABS: Appearance,Urine CLEAR (Clear); Bilirubin,Urine Negative (Negative); Blood, Urine Negative (Negative); Color,Urine YELLOW (Yellow); Glucose,Urine (UA) Negative (Negative); Ketones,Urine Negative (Negative); Leukocyte Esterase,Urine Negative (Negative); Nitrate,Urine Negative (Negative); PH,Urine 7.5 (5.0-8.5); Protein,Urine Negative (Negative); Specific Gravity, Urine 1.015 (1.005-1.030); Urobilinogen,Urine 0.2 EU/dl (0.2)
[2021-09-12 14:52] LABS: Bacteria,Urine 1+ /lpf
== END ==
PROVIDERS: Visit Provider Orthopaedic Surgery
DX: Z01.818 Encounter for other preprocedural examination (principal); M25.551 Pain in right hip
CPT/HCPCS: 36415; 71046; 73502; 80053; 81001; 85025; 93005

== ENCOUNTER → 2021-09-19 06:53 | Outpatient (CLI) | payer MEDICARE, MEDICAID, SELFPAY ==
--- NOTE | 2021-09-19 06:53 | CT_ITS ---
PROCEDURE INFORMATION: Exam: CT Right Lower Extremity Without Contrast, Hip Exam date and time: 09/19/2021 6:53 AM Age: 71 years old Clinical indication: Patient HX: Right hip pain, preop for bryan; Additional info: Preop for RT bryan TECHNIQUE: Imaging protocol: CT of the Right lower extremity without contrast was performed. Exam focused on the hip. 3D rendering (Not supervised by radiologist): MIP and/or 3D reconstructed images were created by the technologist. Radiation optimization: All CT scans at this facility use at least one of these dose optimization techniques: automated exposure control; mA and/or kV adjustment per patient size (includes targeted exams where dose is matched to clinical indication); or iterative reconstruction. COMPARISON: 1. CR XR HIP RT 2-3V W/PELVIS 09/12/2021 12:04 PM 2. CR XR HIP RT 2-3V W/PELVIS 04/19/2021 10:40 AM 3. CR XR HIP RT 2-3V W/PELVIS 12/13/2020 8:32 PM FINDINGS: Bones/joints: There is severe primary osteoarthritis of the right hip joint. There is a chronic incompletely healed fracture involving the lateral acetabulum. Mild primary osteoarthritis involves the right sacroiliac joint. No acute fracture. The dominant acetabular subchondral cyst measures 1.6 cm. Soft tissues: No suspicious mass. IMPRESSION: Severe primary osteoarthritis of the right hip joint.
== END ==
PROVIDERS: PCP Internal Medicine Adolescent Medicine; Visit Provider Orthopaedic Surgery
DX: M16.11 Unilateral primary osteoarthritis, right hip (principal)
CPT/HCPCS: 73700

== ENCOUNTER → 2021-09-21 09:49 | Outpatient (CLI) | payer MEDICARE, SELFPAY | PROVIDERS: Visit Provider Orthopaedic Surgery | DX: Z01.818 Encounter for other preprocedural examination (principal); Z11.52 Encounter for screening for COVID-19 | CPT/HCPCS: 36415; 86850; C9803; U0003; U0005 ==

== ENCOUNTER 2021-09-23 08:37 | Observation (INO) | payer MEDICARE, MEDICAID, SELFPAY ==
--- NOTE | 2021-09-11 13:22 | SW/DCPLANNER ---
Addendum entered by Mirlande Best 09/25/21 11:30: SET UP HOME HEALTH PT AND SNF FOR THIS PATIENT THAT IS DISCHARGING HOME LATER TODAY AND WILL BE STAYING WITH HER DAUGHTER MAVIS HESTER [id number] [facility]... [place] [address] PHONE NUMBER PATIENT WILL BE USING AMEDYSIS ORDERS WERE FAXED ALONG WITH PATIENT INFORMATION FOR SERVICES. Addendum entered by Mirlande Best 09/25/21 07:47: WAITING TO SEE IF PATIENT IS GOING TO BE ABLE TO DISCHARGE TODAY, WILL SET HER UP WITH HOME HEALTH IN [facility]. Addendum entered by Mirlande Best 09/24/21 14:56: RECEIVED REFERRAL FOR THIS PATIENT FOR DISCHARGE PLANNING: PATIENT PRESENTED INTO THE HOSPITAL FOR A SCHEDULED TOTAL HIP.. PATIENT IS DOING WELL AND THE PLAN IS FOR HER TO POSSIBLY DISCHARGE IN THE AM (THU) TO GO HOME WITH HER DAUGHTER IN [facility]. PATIENT STATED SHE HAS A WALKER AND BEDSIDE COMMODE, WILL NEED SOME HOME HEALTH SERVICES AND I WILL EXPLORE WHAT COMPANY SERVICES [facility]. DAUGHTER STATED THAT HER MOTHER AND FATHER WILL BE LIVING WITH HER FOR AN UNDETERMINED AMOUNT OF TIME, SHE STATED HER FATHER HAS DEMENTIA AND MOTHER CAN'T CARE FOR HIM NOW.. WILL CONFIRM AN AGENCY BEFORE PATIENT IS DISCHARGED FROM THE HOSPITAL.. Original Note: MADE CONTACT WITH THIS PATIENT REGARDING HER UPCOMING SURGERY, SHE STATED HER PLANS ARE TO COME HOME AND HER DAUGHTER WHOM LIVES OUT OF TOWN PLANS TO COME AND STAY WITH HER, IF THAT SHOULD CHANGE AND SHE NEEDS SHORT TERM REHAB I WILL BE AVAILABLE TO ASSIST WITH THAT..... PATIENT HAS [employer] AND WILL NEED AN AUTHORIZATION IF THAT IS WHAT SHE WISHES TO DO...
[2021-09-17 10:41] VITALS: BMI 43.9
[2021-09-23] VITALS (18 sets, daily range): BP systolic 85–152; BP diastolic 47–71; PULSE 41–65; RESP 12–20; TEMP 34.7–38; O2SAT 96–100
[2021-09-23 08:56] LABS: Coronavirus 19, PCR Not Detected (NotDetected); Influenza A, PCR Not Detected (NotDetected); Influenza B, PCR Not Detected (NotDetected)
--- NOTE | 2021-09-23 09:20 | HMH.PHAINT ---
MEDICATION RECONCILIATION COMPLETED ON PATIENT USING EXTERNAL FILL HISTORY FROM PHARMACY. -KENAN RANDALL, ROSANGELAD
--- NOTE | 2021-09-23 10:00 | HMH.ANESCL ---
[facility] Anesthesia Checklist - Patient Identification Patient Identification: Arm Band - Structural Data Admitted From: Home Planned Operative Procedure/s: Hip arthroplasty Consent for Planned Operative Procedure(s) Verified: Yes - NPO Status Verified Time NPO: 00:00 - Additional verifications Anesthesia Reactions: No Hx Blood Transfusions: No Blood Transfusion Reaction: No - Airway Assessment C-Spine Mobility Assessed: Yes TMJ Mobility Assessed: Yes Dentition: Good Dentition - Neurological Assessment Level of Consciousness: Awake Hx Seizures: No Numbness or tingling in extremities: No - Anesthesia Plan Anesthesia Risk discussed: Yes Anesthesia Plan: Verified ASA Class: III Anesthesia Type: Spinal [facility] History I have reviewed the patient's past medical history: Yes Medical History: Reports:: Arrhythmia, Atrial Fibrillation, Cancer, Gastroesophageal Reflux Disease(GERD), Hyperlipidemia, Hypertension Denies:: Diabetes Mellitus Type 1, Diabetes Mellitus Type 2, Internal Pacemaker, Lung Disease, MRSA, Seizures *Have you ever received a pneumonia vaccine?: Yes *Have you received a flu vaccine this season?: Yes Other Medical History: Reports: Arthritis, Thyroid Disease. Denies: Blood Transfusion Reaction Anesthesia experience/problems:: None Laterality Cases: Left: Cataract, Lumpectomy Other Surgeries: Yes: Cancer Surgery, Cholecystectomy, Colonoscopy, EGD, Thyroidectomy, Tubal Ligation. No: Pacemaker Amputation: No Fractures: Yes - *Social History Last grade of school completed: High school graduate Smoking Status: Never smoker Alcohol Intake: never Substance Use Type: denies use *Occupational Status:: retired Housing: house Household Members: spouse *Travel in the last 8 weeks: None Family Hx:: Coronary Artery Disease, Heart Attack, Stroke
[2021-09-23 15:14] LABS: Microscopic,Cath URINE MICROSCOPIC (MICROSCOPIC)
[2021-09-23 16:20] LABS: Appearance,Urine/Cath CLEAR (Clear); Bilirubin,Cath Negative (Negative); Blood, Urine/Cath Negative (Negative); Color,Urine/Cath STRAW (Yellow); Glucose,Urine/Cath (UA) Negative (Negative); Ketones,Urine/Cath Negative (Negative); Leukocyte Esterase,Cath Negative (Negative); Nitrate,Cath Negative (Negative); Protein,Urine/Cath Negative (Negative); Urobilinogen,Cath 0.2 EU/dl (0.2)
[2021-09-23 17:05] LABS: Bacteria,Urine/Cath TRACE /lpf; WBC,Urine/Cath Occasional #/hpf (0-3)
--- NOTE | 2021-09-23 18:25 | XR_ITS ---
PROCEDURE INFORMATION: Exam: XR Right Hip Exam date and time: 09/23/2021 6:25 PM Age: 71 years old Clinical indication: Device placement; Patient HX: C-arm used for total right hip replacement. ; Additional info: C-arm used during total right hip procedure. TECHNIQUE: Imaging protocol: XR Right hip. Views: 2 or 3 views hip with pelvis when performed. COMPARISON: CT HIP RT WO CON 09/19/2021 7:01 AM FINDINGS: Bones/joints: Multiple intraoperative fluoroscopic spot images of right hip arthroplasty placement. IMPRESSION: Multiple intraoperative fluoroscopic spot images of right hip arthroplasty placement.
--- NOTE | 2021-09-23 19:11 | XR_ITS ---
PROCEDURE INFORMATION: Exam: XR Right Hip Exam date and time: 09/23/2021 7:11 PM Age: 71 years old Clinical indication: Screening exam; Post op; Prior surgery; Surgery date: Post-operative (0-2 days); Additional info: Post total hip arthroplasty TECHNIQUE: Imaging protocol: XR Right hip. Views: 2 or 3 views hip with pelvis when performed. COMPARISON: XA XR HIP RT 2-3V W/PELVIS 09/23/2021 5:02 PM FINDINGS: Tubes, catheters and devices: Mathews catheter in place. Bones/joints: Multilevel lumbar spine degenerative disc space narrowing and osteophyte formation. Moderate degenerative changes of the left hip, manifest by joint space narrowing and osteophyte formation. Right hip arthroplasty in normal anatomic alignment, without evidence of acute complications. No acute fracture or dislocation. Soft tissues: Surgical drains within the soft tissues of the right hip. IMPRESSION: 1. Right hip arthroplasty in normal anatomic alignment, without evidence of acute complications. 2. No acute fracture or dislocation.
--- NOTE | 2021-09-23 19:49 | HMH.ANESI ---
[facility] Anesthesia Record Part I Intake, IV Amount: 3,200 Estimated blood loss (mL): 500 Urine output (mL): 300 Blood Pressure: 90/56 SaO2: 96 Pulse Rate: 50 Respiratory Rate: 12 Temperature: 96.5 F Patient is:: Awake, Stable Stable to PACU at:: 19:40
--- NOTE | 2021-09-23 20:20 | SUR.PHASEI ---
Shantell BEATRIZ Hnuter aware of BP and pulse. No new orders at this time.
--- NOTE | 2021-09-23 20:26 | PC.NURSE ---
REPORT RECIEVED FROM SUKHJINDER GARNICA
--- NOTE | 2021-09-23 20:37 | HMH.OPNOTE ---
Date of procedure: 09/23/21 Pre-op Diagnosis:: 1. Advanced degenerative arthritis, right hip 2. Morbid obesity Post-op Diagnosis:: Same Procedure performed:: Uncemented total hip arthroplasty, right hip Surgeon:: Graeme Benjamin MD Flower Grader(s):: Rissa Mosqueda PA-C BID WRITER:: Herve Kwok Anesthesia: spinal Estimated blood loss (mL): 500 Clinical Note:: Patient is a 71-year-old female with end-stage osteoarthritis of the right hip unresponsive to conservative management. The arthritis is causing severe pain and significant disability and has not responded well to conservative management. Her mobility, ability to work, and quality of life is severely impacted. The pain is also affecting her lifestyle, activities of daily living and significantly impacting her sleep. Also she is at a high risk of falls from the arthritis. Therefore a total hip arthroplasty is indicated to relieve pain and to reduce the disability and risk of falls. Please refer to my office note for full details. Operative findings:: Preoperative examination and x-ray findings were consistent with the above diagnosis. Intraoperatively, end-stage osteoarthritis of the hip joint is noted. The femoral head was grossly arthritic and misshapen and osteophytes were noted on both the acetabular and the femoral side. The capsule/soft tissues are contracted and tight. The capsule was thickened and range of motion was markedly decreased. The joint capsule and surrounding soft tissue were thickened and inflamed and more than usual amount of bleeding noted during surgery. The bone quality is good. Overall, it was a very difficult procedure given the patient's size, degree of arthritis and stiffness of the hip joint. Operative note:: On the day of the procedure the patient was met in the preoperative area and the patient was positively identified. A physical examination was performed and documented. The operative site was appropriately marked and initialed by me. I again reviewed the diagnosis, natural history and management options in detail including both nonsurgical and surgical. We discussed the proposed surgery, risks and benefits and alternatives in detail. The complications discussed include but are not limited to infection, bleeding, injury to nerves, blood vessels and tendons, DVT and PE, fracture, limb length inequality, dislocation, implant malpositioning, implant failure, squeaking, loosening, acetabular wear, osteolysis, periprosthetic femur fracture, heterotopic ossification, abductor weakness and limp, incomplete relief of pain, incomplete recovery of function, chronic pain, likely need for further surgery in future including revision, anesthetic complications including heart attack, stroke and even . We also discussed the postoperative recovery and rehabilitation. Patient verbalized a good understanding and wished to proceed with the proposed surgery. Patient understood the risks, agreed to proceed with surgery and no guarantees or assurances were given or implied. The patient was brought to the operating room and a spinal anesthesia was administered by the labeling strategist. The patient was then positioned in the left lateral decubitus position with the right hip facing up. We used Spaciouson hip positioner for this. All the bony prominences were appropriately padded. The right hip was then prepped with isopropyl alcohol followed by chlorhexidine and draped in the usual sterile fashion. The entire operative team wore isolation suits and the Operating Room traffic was controlled. The skin incision was marked for a posterior approach to the hip joint. The perineum and the operative site were sealed off with Ioban drape. A preprocedure timeout was performed as per hospital protocol identifying the patient, correct surgery and correct site. Administration of prophylactic antibiotics (IV Ancef and vancomycin) was confirmed with the labeling strategist. Before completion of the procedure 1 more gram of IV Ancef w
--- NOTE | 2021-09-23 20:55 | PC.NURSE ---
UNABLE TO OBTAIN AN ORALLY OR AXILLARY TEMP ON PT AT THIS TIME.NAHUN,RN URGENT CARE NURSE SAID THAT HER TEMP WAS 97.7 AX BEFORE COMING UP AND HER TEMP HAS BEEN HARD TO OBTAIN IN PACU.PT HAD SAID SHE WAS HOT AND TORE THE ALBERTO PAWS OFF.SEVERAL WARM BLANKETS APPLIED TO PT AT THIS TIME
--- NOTE | 2021-09-23 21:02 | HMH.ORTHHP ---
*Admission Date: 09/23/21 *Reason for consult:: Right total hip arthroplasty *History of present illness: Patient is a 71-year-old female admitted to the hospital after an uneventful right total hip arthroplasty today 09/23/2021. She has had chronic right hip pain for years which has failed to respond satisfactorily to nonsurgical management including NSAIDs, physical therapy, and activity modification. She reports her pain a 5 out of 10 at rest and a 9 out of 10 at its worst. She uses a cane for walking assistance. She reports sitting for long periods of time, walking, and weightbearing aggravate her pain. She also reports significant night pain and sleep disturbance on a daily basis. Following evaluation in the office, patient elected to proceed with a right total hip arthroplasty. X-rays and CT of the right hip demonstrate severe degenerative changes of the right hip joint. A total hip arthroplasty is indicated to reduce the risk of falls, as well as improve her pain, mobility, and quality of life. The surgical and nonsurgical alternatives were discussed in detail with the patient as well as the risks and benefits of surgery. No history of back pain, radicular symptoms, distal tingling/numbness, nausea, vomiting, chest pain, shortness of breath, palpitations, or any other symptoms at this time. She is a non-smoker. Her past medical history is significant for renal failure, atrial fibrillation, hypertension, and cancer. [facility] History I have reviewed the patient's past medical history: Yes Medical History: Reports:: Arrhythmia, Atrial Fibrillation, Cancer, Gastroesophageal Reflux Disease(GERD), Hyperlipidemia, Hypertension Denies:: Diabetes Mellitus Type 1, Diabetes Mellitus Type 2, Internal Pacemaker, Lung Disease, MRSA, Seizures *Have you ever received a pneumonia vaccine?: Yes *Have you received a flu vaccine this season?: Yes Other Medical History: Reports: Arthritis, Thyroid Disease. Denies: Blood Transfusion Reaction Anesthesia experience/problems:: None Laterality Cases: Left: Cataract, Lumpectomy Other Surgeries: Yes: Cancer Surgery, Cholecystectomy, Colonoscopy, EGD, Thyroidectomy, Tubal Ligation. No: Pacemaker Amputation: No Fractures: Yes - *Social History Last grade of school completed: High school graduate Smoking Status: Never smoker Alcohol Intake: never Substance Use Type: denies use *Occupational Status:: retired Housing: house Household Members: spouse *Travel in the last 8 weeks: None Family Hx:: Coronary Artery Disease, Heart Attack, Stroke Review of Systems - Review of Systems Review of systems:: pertinent systems reviewed and negative unless documented below - Constitutional Denies body ache(s), Denies chills, Denies fatigue, Denies weakness - Eyes Denies blind spots, Denies blurry vision, Denies change in vision, Denies double vision, Denies loss of vision - ENT Denies abnormal hearing, Denies dizziness, Denies difficulty swallowing, Denies nasal congestion, Denies neck pain - *Cardiovascular Denies chest pain, Denies chest pain at rest, Denies chest pain with activity, Denies shortness of breath, Denies shortness of breath with activity, Denies radiating jaw, neck or arm pain - *Respiratory Denies chest congestion, Denies cough, Denies shortness of breath, Denies stridor, Denies wheezing - *Gastrointestinal Denies abdominal pain, Denies change in bowel habits, Denies nausea, Denies pain with swallowing, Denies vomiting - *Genitourinary Denies difficulty urinating, Denies painful urination, Denies urinary incontinence, Denies urinary urgency - *Musculoskeletal Reports abnormal walking, Reports joint pain, Denies back pain, Denies body aches, Denies neck pain, Denies numbness, Denies tingling - *Neurologic Denies abnormal movements, Denies abnormal speech, Denies dizziness, Denies numbness, Denies sensory deficit, Denies tingling, Denies weakness Meds Home Medications Medication Instructions Record
--- NOTE | 2021-09-23 21:25 | PC.NURSE ---
STILL UNABLE TO OBTAIN AN ORAL OR AXILLARY TEMP,INFORMED THROUGHTOUT THE HOSPITAL TO SEE IF SOMEONE HAD A TEMPORAL THEROMETER,MORE WARM BLANKETS APPLIED TO PT
--- NOTE | 2021-09-23 21:55 | PC.NURSE ---
MORE WARM BLANKETS APPLIED DIRECTLY TO PT AT THIS TIME,AWAITING ON ALBERTO PAWS MACHINE.
--- NOTE | 2021-09-23 22:00 | PC.NURSE ---
90 ML OF BLOOD EMPTIED FROM THE 2 ANTONIA DRAINS
--- NOTE | 2021-09-23 22:30 | PC.NURSE ---
ALBERTO PAWS APPLIED TO PT GOWN AT THIS TIME
--- NOTE | 2021-09-23 23:15 | PC.NURSE ---
MEDICATED PT WITH MORPHINE 2MG IVP FOR PAIN OF 6 OUT OF 0-10 AND PT WAS ALSO GIVEN ZOFRAN 4MG IVP TOO FOR NAUSEA AFTER THE MORPHINE WAS GIVEN,PT TEMP WAS 97.3 AX.,WILL CONTINUE TO MONITOR
[2021-09-24] VITALS (15 sets, daily range): BP systolic 86–139; BP diastolic 35–94; PULSE 60–72; RESP 14–18; TEMP 36.5–37.1; O2SAT 96–100
--- NOTE | 2021-09-24 02:45 | PC.NURSE ---
PT HAD RANG OUT AND WANTED TO BE MOVED SOME.TILTED HER TO THE LEFT A LITTLE TO GET HER OFF HER RIGHT HIP SOME,NO DRAINAGE TO DRESSING,ICE PACK REMAINS,ANTONIA DRAIN EMPTIED AGAIN WITH 130 ML BLOODY FLUID,MEDICATED WITH MORPHINE 2MG IVP FOR PAIN OF 7 OUT OF A 0-10
--- NOTE | 2021-09-24 04:30 | PC.NURSE ---
PT TEMP BETTER THIS MORNING 98.7 ORALLY,ALBERTO PAWS REMOVED AND GOWN APPLIED.NO DRAINAGE TO DRESSING ,ICE PACK REMAINS IN PLACE WITH 2 ANTONIA DRAINS A TOTAL OF 220ML OF BLOODY DRAINAGE EMPTIED THUS FAR,RESP.EVEN AND UNLABORED,LUNGS CLEAR ALL FRONT,PT ABLE TO ACHIEVE 1500ML ON INCENTIVE SPIROMETER,ABDUCTER PILLOW IN PLACE,BUSCH CATH DRAINING CLEAR YELLOW URINE-350ML EMPTIED,PT REPORTS HER PAIN IS TOLERABLE AT THIS TIME,WILL CONTINUE TO MONITOR
[2021-09-24 07:07] LABS: Basophils % 0.3 % (0.1-2.0); Eosinophils % 0.2 % (0.1-12.0); Hemoglobin 9.6 g/dL (12.2-16.2); Lymphocytes # 1.8 K/mm3 (0.7-4.5); Lymphocytes % 20.5 % (10-50); Mean Corpuscular HGB Conc 33.2 g/dL (31.8-35.4); Mean Corpuscular Hemoglobin 30.9 pg (27.0-31.2); Mean Corpuscular Volume 93.2 fl (81-99); Mean Platelet Volume 9.5 fl (7.4-10.4); Monocytes # 0.6 K/mm3 (0.1-1.0); Monocytes % 6.9 % (1.7-9.3); Neutrophils # 6.4 K/mm3 (1.8-7.8); Neutrophils % 72.2 % (37.0-80.0); Platelet Count 161 K/mm3 (142-424); Red Blood Count 3.12 M/mm3 (4.20-5.40); Red Cell Distribution Width 14.5 % (11.5-17.5); White Blood Count 8.9 K/mm3 (4.8-10.8)
[2021-09-24 07:19] LABS: Chloride 107 mmol/L (98-107); Sodium 137 mmol/L (136-145)
[2021-09-24 07:20] LABS: Potassium 4.2 mmoL/L (3.5-5.1)
[2021-09-24 07:22] LABS: Blood Urea Nitrogen 15 mg/dl (7-17); Creatinine Clearance Estimated 37 mL/min (50-200); Estimated Glomerular Filt Rate 62 ml/min (>60); GFR (African American) 75 ML/MIN (>60)
[2021-09-24 07:23] LABS: Anion Gap 7.2 mEq/L (5-15); Calcium 7.7 mg/dl (8.4-10.2); Carbon Dioxide 27 mmol/L (22.0-30.0); Glucose 117 mg/dl (74-100)
--- NOTE | 2021-09-24 07:50 | PC.NURSE ---
Ice pack refilled and placed on rt hip
--- NOTE | 2021-09-24 08:35 | PC.NURSE ---
Rissa Mosqueda here to see pt.
--- NOTE | 2021-09-24 09:14 | HMH.ORTHPN ---
Subjective Date: 09/24/21 <Rissa Mosqueda - 09/24/21 09:18> Time: 08:30 <Rissa Mosqueda - 09/24/21 09:18> Principal diagnosis: S/p right total hip arthroplasty <Rissa Mosqueda - 09/24/21 09:18> Interval history: Patient is a 71-year-old female who underwent an uneventful right total hip arthroplasty yesterday 09/23/2021. Today she is postop day #1. This morning she is lying comfortably in bed and her daughter and are at the bedside. This morning she reports right hip pain but states that it is well controlled with pain medication. She reports that she has been drinking well but has not had much of an appetite. She has not ambulated with the assistance of physical therapy yet. She denies nausea, vomiting, distal numbness/tingling, shortness of breath, chest pain, chills, fever, rigors, or any other symptoms at this time. <Rissa Mosqueda - 09/24/21 11:41> PN: Obj Ex Vital signs: Temp Pulse Resp BP Pulse Ox 98.5 F 65 18 108/55 L 100 09/24/21 16:00 09/24/21 16:00 09/24/21 16:00 09/24/21 16:00 09/24/21 16:00 <Graeme Benjamin - 09/24/21 17:45> Temp Pulse Resp BP Pulse Ox 98.0 F 69 18 107/56 L 98 09/24/21 08:00 09/24/21 08:00 09/24/21 08:00 09/24/21 08:00 09/24/21 08:00 <Rissa Mosqueda - 09/24/21 09:18> - Constitutional no acute distress, obese, cooperative <Rissa Mosqueda - 09/24/21 09:18> - Routine HEENT Exam Head: Present: normocephalic, atraumatic <Rissa Mosqueda - 09/24/21 09:18> Eye: Present: EOMI, PERRL <Rissa Mosqueda 09/24/21 09:18> ENT: Present: mucous membranes moist <Rissa Mosqueda 09/24/21 09:18> - Routine Neck Exam Present: supple, full ROM, trachea midline. Absent: JVD <Rissa Mosqueda 09/24/21 09:18> - Routine Respiratory Exam Absent: accessory muscle use, respiratory distress <Rissa Mosqueda 09/24/21 09:18> Comments: Able to speak in complete sentences, symmetric chest movement <Rissa Mosqueda 09/24/21 11:41> - Routine Cardiovascular Exam Present: irregularly irregular. Absent: JVD <MosquedaRissa johnson 09/24/21 09:18> Comments: Normal peripheral pulses <MosquedaRissa johnson 09/24/21 11:54> - Routine Abdominal Exam Present: soft. Absent: tenderness <Rissa Mosqueda 09/24/21 09:23> - Routine Extremities Exam Present: pulses intact, normal capillary refill. Absent: calf tenderness <Rissa Mosqueda 09/24/21 09:23> Comments: Upon examination of the lower extremities: The limb lengths are equal. Dressings over the right hip are clean, dry, and intact. No evidence of bleeding or drainage noted. There are [address] with approximately 15 cc of drainage currently noted. Attempted movements of the right leg are painful as to be expected at this stage. Thigh and calf are soft and nontender; Homans' sign is negative. No clinical evidence of DVT noted. Posterior tibial pulse 2+; capillary refill is brisk. Sensation to light touch is grossly intact. Patient is actively mobilizing the foot, ankle, and toes. <JaylinRissa 09/24/21 11:54> - Routine Skin Exam Present: intact, warm, normal turgor. Absent: erythema, jaundice <Mosqueda,Rissa 09/24/21 09:23> - Routine Neurological Exam Present: alert, oriented X3, moving all extremities, normal tone, normal speech. Absent: sensory deficit, motor deficit, altered mental status <JaylinRissa 09/24/21 09:23> - Routine Psychiatric Exam Present: normal affect, cooperative <JaylinRissa 09/24/21 09:23> - Urinary Catheter Management Mathews Cath placed during this visit: no <Graeme Benjamin - 09/24/21 17:45> no <Rissa Mosqueda - 09/24/21 11:55> Urethral indwelling: Yes <Rissa Mosqueda - 09/24/21 09:23> Progress Note: A&P (1) S/P total right hip arthroplasty Status: Acute <Graeme Benjamin - 09/24/21 17:45> (1) S/P total right hip arthroplasty Status: Acute <Layne
--- NOTE | 2021-09-24 09:15 | PC.NURSE ---
PT/OT at bs with pt.
--- NOTE | 2021-09-24 09:47 | PC.NURSE ---
PT/OT just finished with therapy. Pt was able to stand up to side of bed for about a minute or two. Bed straighted and chux changed while pt was standing. Mathews cath remains patent with clear yellow urine noted in drainage bag. ANTONIA drains were also emptied at this time (95mls total).. Bilat leg / foot edema noted (2+ pitting). Pillow wedge in place while pt is lying in bed. Scud remains on left leg (thigh high). +BS all quads. Lungs clear bilat to auscultate. Blood pressure medication held this morning r/t hypotension. Family x2 at currently.
--- NOTE | 2021-09-24 10:00 | HMH.OTEV ---
OT Inpatient Evaluation Rehab OT IP Evaluation Start: 09/23/21 19:52 Freq: ONCE Status: Complete Protocol: Document 09/24/21 09:50 [facility] (Rec: 09/24/21 09:59 [facility] [id number]) Rehab OT IP Assessment Subjective History Pt oriented x 3 on arrival. Pt agreeable to engage in therapy evaluation. Pt's daughter and are present and supportive of therapy. Pt was admitted on 09/23/21 following a Right total hip arthroplasty. Pt has a past medical history of Arrhythmia, Atrial Fibrillation, Cancer, Gastroesophageal Reflux Disease(GERD), Hyperlipidemia, Hypertension. Pt reports prior to surgery she lived in an apartment with her . Pt claims she was independent with all ADLs and IADLs. She did use a cane during ambulation for safety purposes. She did not have steps in her apartment. Daughter present during entire evaluation. Pt's daughter reports she wants to take her mother home with her following discharge from hospital and receive Home health services. Daughter explains the patient cannot return home with her because he is in early stages of dementia. Therapist plans to provide this information with care management team. Subjective I am in a lot of pain. Nursing reports patient has been in significant pain this morning. Pt's blood pressure has been low possibly due to morphine so that was with held . Nursing gave patient pain medicine during evaluation. Pt completed bed mobility with mod assist x 2 in order to go from supine to sitting at eob
--- NOTE | 2021-09-24 10:07 | HMH.PTEV ---
Physical Therapy Evaluation Rehab PT IP Evaluation Start: 09/23/21 19:52 Freq: ONCE Status: Active Protocol: Document 09/24/21 09:55 [facility] (Rec: 09/24/21 10:07 [facility] [id number]) Subjective/History History History This is the inital evalaution for Salma Flores. Patient is a 71-year-old female admitted to the hospital after an uneventful right total hip arthroplasty that occureed . Pt's and daughter were in the room upon arrival. Pt did report significant pain in her L hip. - note done by Gloria Sosa, SPT Subjective Subjective Pt states she was living in an apartment with her on the first floor. Pt reports that she could do all her ADL' s independently for the exception of putting her shoes and socks on due to pain in her R hip previous to surgery. Pt states she did use a cane prior to R BRITT due to significant pain in R hip. Pt reports that she will live with her able daughter once d/ c from [facility]. Pt states she does not use supplemental O2 at home. Rehab PT IP Eval Objective Appearance Patient Behavior Appropriate,Cooperative Patient Orientation Situation Difficulty following instructions none Speech Pattern Clear,Appropriate Ambulation Patient Able to Ambulate No Balance Ability to Arise Able, uses arms to help Sitting Balance Steady, safe Standing Balance Unsteady Dynamic Sitting Balance Ability Fair Dynamic Standing Balance Ability Fair Transfers Bed Transfer Ability Maximum x 2 (75% assist) Sit to Stand Bed Transfer Ability Moderate x 2 (50% assist) Rehab PT IP prob,goals,plan Problems Date of Evaluation: 09/24/21 PT IP Problems Bed Mobility,Transfers,Gait, Balance,Self care Rehab Potential Rehab Potential Good Equipment Needs Assistive Devices Rolling / Wheeled Walker Plan PT Intervention Plan Bed Mobility,Transfers,Gait,
--- NOTE | 2021-09-24 12:30 | PC.NURSE ---
here to see pt.
--- NOTE | 2021-09-24 13:30 | PC.NURSE ---
PT/OT here to see pt.
--- NOTE | 2021-09-24 15:49 | PC.NURSE ---
Mathews Cath discontinued at this time.
--- NOTE | 2021-09-24 16:04 | PC.NURSE ---
Pt returned to floor from CT scan, at to see pt.
--- NOTE | 2021-09-24 17:20 | PC.NURSE ---
Pt assisted up to the toilet for the first time since discontinuing guillen catheter. Pt was 2 person assist and not easily gotten up. Pt was not able to void per bsc, but upon standing up, had stress incontenience and voided in the floor. Brief applied to pt. Pt assisted back to bed x 2 person assist. Did not tolerate getting up well, was medicated with Lortab 2 tabs 5/325 while up. Bp remains low, IV continues at 75ml/hr, afebrile, ANTONIA drains x2 continue. Bs x4 quads normal active, Surgical dressing remains intact and clean. 2+ pitting edema remains ble. Lungs clear, using Incentive Spirometer.
--- NOTE | 2021-09-25 00:10 | PC.NURSE ---
PT WAS ASSISTED TO [facility] X2 STAFF.PT USED HER WALKER,AND MOVED SLOWLY,PT WAS ABLE TO VOID 200ML OF CLEAR YELLOW URINE,PT HAD TO SIT ON BS AWHILE TO GET STREAM FLOWING,ASSISTED BACK IN BED AND SCUD REAPPLIED TO LEFT LEG AND THE ABD DUCTER PILLOW PLACED BACK BETWEEN LEGS,ICE PACK APPLIED TO HIP,BOTH ANTONIA DRAINS EMPTIED WITH TOTAL OF 55 BLOODY DRAINAGE,PT REPORTED HER PAIN IS ABOUT A 5,LITTLE TO SOON FOR PAIN MEDICINE ,PT GOING TO LET POSITIONING AND ICE PLACEMENT WORK AND WHEN TIME ALLOWS PAIN MEDICINE
[2021-09-25 04:40] VITALS: BP 90/43; PULSE 78; RESP 16; TEMP 36.7; O2SAT 94
[2021-09-25 05:00] VITALS: BMI 48.4
--- NOTE | 2021-09-25 05:00 | PC.NURSE ---
NO ACUTE CHANGES FROM PREVIOUS ASSESSMENT,PT LUNGS CLEAR ALL FRONT PT ABLE TO ACHIEVE 1750ML ON INCENTIVE SPIROMETER.NORMAL BOWEL SOUNDS X4 QUADS,EDEMA NOTED TO BLE 2+ PITTING,,PT ABLE TO MOVE HER FEET,ABDDUCTER PILLOW IN PLACE,NO DRAINAGE NOTED TO DRESSING,ANOTHER 45 ML EMPTIED FROM THE 2 ANTONIA FOR A TOTAL 100ML TONIGHT,DRAINAGE STARTING TO GET SEROSANG.ICE REMAINS IN PLACE.B/P REMAINS LOW AT 90/43,HR 78,T-98.0,RESP..16,SAT LEVEL ON ROOM AIR THIS MORNING WAS 94%,PT HAS SLEPT WELL TONIGHT,MEDICATED AT THE 4 HOUR OR A LITTLE GREATER ANDREW TO CONTROL PAIN,WILL CONTINUE TO MONITOR
[2021-09-25 08:15] VITALS: BP 115/57; PULSE 82; RESP 17; TEMP 36.6; O2SAT 97
[2021-09-25 08:17] VITALS: O2SAT 97
--- NOTE | 2021-09-25 09:01 | HMH.ORTHPN ---
Subjective Date: 09/25/21 Time: 08:30 Principal diagnosis: S/p right total hip arthroplasty Interval history: Patient is a 71-year-old female who underwent an uneventful right total hip arthroplasty on 09/23/2021. Today she is postop day #2. This morning upon assessment she is ambulating with the assistance of physical therapy. Her and daughter are at the bedside. She reports that she has been up and walking with assistance and that this has been going well. She reports that she is eating and drinking well, but does not have much of an appetite. She denies nausea or vomiting. She reports right hip pain but states that it is well controlled with pain medication and continues to improve daily. She denies dizziness, shortness of breath, chest pain, distal tingling/numbness, or any other symptoms/concerns at this time. PN: Obj Ex Vital signs: Temp Pulse Resp BP Pulse Ox 97.9 F 82 17 115/57 L 97 09/25/21 08:15 09/25/21 08:15 09/25/21 08:15 09/25/21 08:15 09/25/21 08:17 - Constitutional no acute distress, obese, cooperative - Routine HEENT Exam Head: Present: normocephalic, atraumatic Eye: Present: EOMI, PERRL ENT: Present: mucous membranes moist - Routine Neck Exam Present: supple, full ROM, trachea midline. Absent: JVD, lymphadenopathy - Routine Respiratory Exam Absent: accessory muscle use, respiratory distress Comments: Symmetric chest movement, able to speak in complete sentences - Routine Cardiovascular Exam Present: irregularly irregular Comments: Normal peripheral pulses - Routine Abdominal Exam Present: soft. Absent: tenderness - Routine Extremities Exam Present: pulses intact, normal capillary refill. Absent: calf tenderness, Alina's sign Comments: Upon examination of the lower extremities: The limb lengths are equal. Dressings present over the right hip are clean, dry, and intact. No evidence of drainage or bleeding noted. There are [address] with approximately 25 cc of serosanguineous fluid present. Attempted movements of the right hip are painful as to be expected at this stage. Thigh and calf are soft and nontender; Homans' sign is negative. No clinical evidence of DVT noted. Posterior tibial pulse 2+; capillary refill is brisk. Sensation to light touch is grossly intact throughout. Patient is actively mobilizing the hip, knee, foot, and ankle. - Routine Skin Exam Present: intact, warm, normal turgor. Absent: erythema, jaundice - Routine Neurological Exam Present: alert, oriented X3, CN II-XII intact, moving all extremities, normal tone, normal speech. Absent: sensory deficit, motor deficit - Routine Psychiatric Exam Present: normal affect, cooperative - Urinary Catheter Management Mathews Cath placed during this visit: no Urethral indwelling: No Progress Note: A&P (1) S/P total right hip arthroplasty Status: Acute Assessment and Plan for All Diagnoses:: I have discussed the clinical findings and progress with the patient and her family. Overall she is doing well from an orthopedic standpoint and is in good spirits this morning. Dressings present over the right hip are clean, dry, and intact. This morning the patient's blood pressure has improved; repeat hemoglobin today is 9.7. Today the patient appears stable. Advised patient to continue use of the abductor pillow when lying down in bed and/or sleeping for 6 weeks postop. Continue DVT prophylaxis as ordered for 6 weeks postop. Continue rest, ice, elevation, activity modification, and pain medication as needed. Continue standard precautions for the posterior approach to the hip. Continue PT/OT. All questions were answered and the patient and her family verbalized a good understanding. Case management assisting with discharge planning; tentative plan is for patient to go home today with her daughter and home health services. Continue home medications as ordered. We will see her in
[2021-09-25 09:35] LABS: Basophils % 0.3 % (0.1-2.0); Eosinophils # 0.2 K/mm3 (0.0-0.4); Eosinophils % 1.4 % (0.1-12.0); Hematocrit 28.8 % (37.0-47.0); Hemoglobin 9.7 g/dL (12.2-16.2); Lymphocytes # 2.5 K/mm3 (0.7-4.5); Lymphocytes % 20.6 % (10-50); Mean Corpuscular HGB Conc 33.6 g/dL (31.8-35.4); Mean Corpuscular Hemoglobin 30.9 pg (27.0-31.2); Mean Corpuscular Volume 92.1 fl (81-99); Mean Platelet Volume 9.7 fl (7.4-10.4); Monocytes # 0.7 K/mm3 (0.1-1.0); Monocytes % 5.4 % (1.7-9.3); Neutrophils # 8.7 K/mm3 (1.8-7.8); Neutrophils % 72.3 % (37.0-80.0); Platelet Count 188 K/mm3 (142-424); Red Blood Count 3.12 M/mm3 (4.20-5.40)
[2021-09-25 09:47] LABS: Chloride 103 mmol/L (98-107); Potassium 4.3 mmoL/L (3.5-5.1); Sodium 138 mmol/L (136-145)
[2021-09-25 09:50] LABS: Anion Gap 8.3 mEq/L (5-15); Blood Urea Nitrogen 13 mg/dl (7-17); Calcium 8.3 mg/dl (8.4-10.2); Carbon Dioxide 31 mmol/L (22.0-30.0); Creatinine Clearance Estimated 29 mL/min (50-200); Estimated Glomerular Filt Rate 44 ml/min (>60); GFR (African American) 54 ML/MIN (>60); Glucose 143 mg/dl (74-100)
--- NOTE | 2021-09-25 11:50 | PC.NURSE ---
Assisted up to bed with 2 person assist. Pt was able to void 600mls of clear, yellow, urine. Pt assisted back to bed w/o incident.
--- NOTE | 2021-09-25 11:53 | PC.NURSE ---
Case Management here to see pt and discuss POC
[2021-09-25 15:00] VITALS: BP 121/71; PULSE 92; RESP 21; TEMP 36.4; O2SAT 100
--- NOTE | 2021-09-25 16:00 | PC.NURSE ---
Reviewed discharge instructions with Pt and Pt's daughter (whom pt is going home with). Hip Replacement, Medications, and Covid Prevention discharge instructions given. Both verbalize understanding.
--- NOTE | 2021-09-25 16:30 | PC.NURSE ---
Assisted to private vehicle via w/c by BEATRIZ Thomas. Pt accompanied by her daughter and her .
--- NOTE | 2021-09-25 16:37 | HMH.DCSUM ---
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 She was admitted to [facility] following an uncomplicated primary right total hip arthroplasty on 09/23/2021. She has had chronic right hip pain for years which has failed to respond satisfactorily to nonsurgical management including NSAIDs, physical therapy, and activity modification. She reports her pain is a 5 out of 10 at rest and a 9 out of 10 at its worst. She uses a cane for walking assistance. She reports sitting for long periods of time, walking, and weightbearing aggravate her pain. She also reports significant night pain and sleep disturbance on a daily basis. Following evaluation in the office, patient elected to proceed with a right total hip arthroplasty. X-rays and CT of the right hip demonstrate severe degenerative changes of the right hip joint. A total hip arthroplasty is indicated to reduce the risk of falls, as well as improve her pain, mobility, and quality of life. The surgical and nonsurgical alternatives were discussed in detail with the patient as well as the risks and benefits of surgery. No history of back pain, radicular symptoms, distal tingling/numbness, nausea, vomiting, chest pain, shortness of breath, palpitations, or any other symptoms. She is a non-smoker. Her past medical history is significant for renal failure, atrial fibrillation, hypertension, and cancer. Hospital Course Hospital Course: Following an uncomplicated primary right total hip arthroplasty the patient was admitted to the inpatient service and has progressed well. Her postoperative check x-ray was satisfactory with good alignment and fixation of the components. Patient was advised to ambulate weightbearing as tolerated on the right side. She managed this very well using the walker and assistance of physical therapy. Her pain is well controlled with oral analgesics. Prior to discharge, her surgical dressings were changed and her surgical drains were removed. The surgical incision is clean, dry, and healthy-appearing without any active discharge, erythema, induration, or other signs of infection. Distal neurovascular status is intact and there is no clinical evidence of DVT. She has been eating and drinking well without any problems. Postoperatively she was mildly hypotensive, IV fluids were continued as the patient began to eat and drink again and repeat CBC showed that her hemoglobin was stable at 9.7. At discharge patient is medically stable. Patient was cleared for discharge by physical therapy. Patient was started on Xarelto 10 mg daily for DVT prophylaxis after surgery. On the day of discharge, the wound is clean and dry. The patient's vital signs have been stable and she is afebrile at the time of discharge. She is being discharged home with home health. Objective Vital signs: Temp Pulse Resp BP Pulse Ox 97.6 F 92 H 21 121/71 100 09/25/21 15:00 09/25/21 15:00 09/25/21 15:00 09/25/21 15:00 09/25/21 15:00 no acute distress, obese, cooperative - *Routine HEENT Exam Head: Present: normocephalic, atraumatic Eye: Present: EOMI, PERRL ENT: Present: mucous membranes moist - *Routine Neck Exam Present: supple, full ROM, trachea midline. Absent: JVD, lymphadenopathy - *Routine Respiratory Exam Present: CTA bilaterally. Absent: accessory muscle use, respiratory distress Comments: Symmetric chest movement, able to speak in complete sentences - *Routine Cardiovascular Exam Present: Normal S1, Normal S2, irregularly irregular. Absent: JVD Comments: Normal peripheral pulses - *Routine Abdominal Exam Present: soft, normoactive bowel sounds. Absent: tenderness - *Routine Rectal Exam Patient deferred: visual exam - *Routine Exam Patient deferred: external e
--- NOTE | 2021-09-30 12:54 | HMH.ANESII ---
[facility] Anesthesia Record Part II Discharge Time: 20:40 Destination: Obstetric PACU nurse assessment reviewed?: Yes Patient Condition:: Good Anesthesia Complications:: None Swallowing reflex intact?: Yes Cyanosis?: No Blood Pressure: 101/51 Pulse Rate: 42 Temperature: 97 F Mental Status: Alert & Oriented Pain level:: 7 Nausea and/or vomitting:: None Intake, IV Amount: 0
[2021-09-30 12:55] VITALS: BP 101/51; PULSE 42; TEMP 36.1
== END 2021-09-25 16:40 | disposition home health service (06) ==
LOC: 2ND 08:38 → OB 18:33
PROVIDERS: Physician Assistant Surgical; Admitting Provider Orthopaedic Surgery; PCP Internal Medicine Adolescent Medicine; Visit Provider Orthopaedic Surgery
PROC: (CPT 27130; principal; 2021-09-23 10:00)
DX: M16.11 Unilateral primary osteoarthritis, right hip (principal); Z20.822 Contact with and (suspected) exposure to COVID-19; I10 Essential (primary) hypertension; I48.91 Unspecified atrial fibrillation; K21.9 Gastro-esophageal reflux disease without esophagitis; E78.5 Hyperlipidemia, unspecified; E03.9 Hypothyroidism, unspecified; E66.01 Morbid (severe) obesity due to excess calories; Z68.42 Body mass index [BMI] 45.0-49.9, adult; Z79.899 Other long term (current) drug therapy
CPT/HCPCS: 27130; G0378; 73502; 80048; 81001; 85025; 96374; 97110; 97116; 97162; 97166; 97530; C1713; C1776; C9803; J2405; J2704; J3370; U0003; U0005

== ENCOUNTER → 2021-10-02 13:20 | Outpatient (CLI) | payer MEDICARE, MEDICAID, SELFPAY ==
--- NOTE | 2021-10-02 13:24 | XR_ITS ---
PROCEDURE: XR HIP RT 2-3V W/PELVIS CLINICAL INDICATION: s/p RT BRITT COMPARISON: CR XR HIP RT 2-3V W/PELVIS from 09/23/2021 FINDINGS: Good alignment status post bipolar hip prosthesis placement. Residual from antibiotic beads are noted laterally. Osteoarthritic changes are present involving the left hip and symphysis pubis. IMPRESSION: Good alignment status post bipolar prosthesis hip placement on the right Dictated by: Amadeo Choi MD 10/02/2021 13:55 Amadeo Choi MD in [facility] 10/02/2021 13:55
== END ==
PROVIDERS: PCP Internal Medicine Adolescent Medicine; Visit Provider Orthopaedic Surgery
DX: Z96.641 Presence of right artificial hip joint (principal); M25.551 Pain in right hip
CPT/HCPCS: 73502; 97535

== ENCOUNTER → 2021-10-30 12:42 | Outpatient (CLI) | payer MEDICARE, MEDICAID, SELFPAY ==
--- NOTE | 2021-10-30 12:49 | XR_ITS ---
FINAL REPORT CLINICAL HISTORY: s/p hip sx COMPARISON: October 02, 2021 FINDINGS: Right hip with pelvis Three views were obtained. There is no acute fracture or dislocation. There has been a right hip arthroplasty. There is no radiographic evidence of hardware complication. Lateral soft tissue calcifications are stable. There is degenerative change in the lower lumbar spine and left hip. IMPRESSION: Right hip arthroplasty without evidence of hardware complication. Reviewed, Interpreted and Dictated by Benito Jessica III, MD Transcribed by José De León Authenticated by Benito Jessica III, MD on 10/30/2021 01:27:52 PM [facility]
== END ==
PROVIDERS: PCP Internal Medicine Adolescent Medicine; Visit Provider Orthopaedic Surgery
DX: Z96.641 Presence of right artificial hip joint (principal); M25.551 Pain in right hip
CPT/HCPCS: 73502

== ENCOUNTER → 2021-12-24 14:51 | Outpatient (CLI) | payer MEDICARE, SELFPAY ==
--- NOTE | 2021-12-24 14:54 | MM_ITS ---
PROCEDURE INFORMATION: Exam: MG Bilateral Screening 3D Mammography Exam date and time: 12/24/2021 2:54 PM Age: 71 years old Clinical indication: Encounter for screening mammogram for malignant neoplasm of breast. No family history of breast cancer. TECHNIQUE: Imaging protocol: Bilateral Screening tomosynthesis and 2D mammography including computer-aided detection (CAD) when performed. COMPARISON: 1. MG MM DIG SCREENING MAMM BI W/CAD 09/03/2020 4:25 PM 2. MG MM DIG SCREENING MAMM BI W/CAD 05/10/2019 9:18 AM 3. MG DMSB DIG MAMM-SCREEN KRYSTINA W/CAD 04/24/2017 8:42 AM 4. MG DMDXUAVR DIG MAMM-DX UNI ADD VIEWS-RT 08/10/2015 1:09 PM FINDINGS: MAMMOGRAPHY: Breast composition: The breast tissue is composed of scattered areas of fibroglandular density. Mass: None. Architectural distortion: None. Calcifications: No suspicious calcifications. Asymmetric density: None. Skin thickening: None. Axillary adenopathy: None. IMPRESSION: No mammographic evidence of malignancy. Annual screening is recommended unless otherwise clinically indicated. ASSESSMENT: BI-RADS Category 1: Negative
== END ==
PROVIDERS: PCP Internal Medicine Adolescent Medicine; Visit Provider Internal Medicine Adolescent Medicine
DX: Z12.31 Encounter for screening mammogram for malignant neoplasm of breast (principal)
CPT/HCPCS: 77063; 77067

== ENCOUNTER 2021-12-26 14:00 | Outpatient (RCR) | payer MEDICARE, MEDICAID, SELFPAY ==
--- NOTE | 2021-11-05 14:38 | HMH.PTOPEV ---
PT Outpatient Evaluation Rehab PT Outpatient Evaluation Start: 11/05/21 13:59 Freq: Status: Active Protocol: Document 11/05/21 14:27 FLORENTINO (Rec: 11/05/21 14:38 PHOTHOMAS [id number]) Electronically Signed By Johnny Lynch, PT 11/05/21 14:27 Outpatient Therapy Subjective History Subjective History Pt is 71 yowf who presents ~ 6 wks S/P R BRITT with continued weakness throughout the R LE, but little to no pain. 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 She does reports her R ankle weakness is improving already and she is in the process of being fit for R drop foot AFO. She reports she had home health for the past month after surgery. She has no pain at this time, but some continued numbness in the R foot. Chief Complaint Stiff,Weakness Symptoms Aggravated By Physical Activity Prior Functional Limitations None Current Functional Limitations Housework,Driving,Standing, Walking Symptom Description Intermittent,Activity Dependent Level of pain today (0-10) 0 Pain scale - at its worst (0-10) 5 Hip/Knee Eval Gait Observation General Gait Pattern Observation Decrease Stride Lngth (R) Assistive Device Assistive Devices Rolling / Wheeled Walker MMT right Hip Flexion Strength Grade 2 Poor Hip Abduction Strength Grade 2 Poor Hip Adduction Strength Grade 4 Good Hip Extension Strength Grade 2 Poor Knee Extension Strength Grade 4 Good Knee Flexion Strength Grade 4 Good Outpatient Therapy Assessment Impairments Problems/Impairmments Palpation Tenderness,Impaired Strength,Impaired Endurance, Impaired Transfers,Impaired Gait Pattern,Impaired Walking, Impaired Standing,Impaired Driving,Impaired Household Care,Impaired Recreational Activities,Increased Edema, Subjective C/O Pain,Impaired Self Care/Self Management Prognosis Rehab Potential Good Clinical Impression Consistent with Diagnosis Yes Consistent with also R foot drop
--- NOTE | 2021-12-05 14:58 | HMH.RHREAS ---
Rehab Reassessment Rehab OP Re-assessment Start: 12/05/21 14:52 Freq: Status: Active Protocol: Document 12/05/21 14:53 FLORENTINO (Rec: 12/05/21 14:58 PHOTHOMAS [id number]) Electronically Signed By Johnny Lynch, PT 12/05/21 14:53 Rehab Re-assessment Subjective Subjective Pt reports much less pain overall and she feels her walking has improved. Objective Objective Notes MMT R LE: R hip grossly 3/5 throughout except ADD remains 4/5. Gait: Pt continues to use quad cane for ambulation with step -to gait pattern on R. Assessment Progress Assessment Progressing as Expected Assessment Notes Pt with increased strength overall throughout R hip, but remains somewhat weak. Continues to have limited ability to perform a step-up with the R LE. SHe has improved her gait pattern from using a walker to using a quad cane which is a significant change in status. she needs to further improve gait however. Patient goals met ST,2,3,4,5 Goals Not Met LT,2,3,4,5,6 Revised Goals none Plan Plan Continue per initial POC. Frequency of Therapy 2 x/wk Duration of therapy 8 wks Time and Billing Re-Eval Time 14 Re-Eval Billing Units 1 PHYSICIAN CERTIFICATION: I certify the specified therapy services for Salma Sanchez are required, authorized, and reviewed every 30 days.
== END 2021-12-26 14:05 | disposition home or self-care (01) ==
LOC: PT 14:00
PROVIDERS: PCP Internal Medicine Adolescent Medicine; Visit Provider Orthopaedic Surgery
DX: M25.551 Pain in right hip (principal); Z96.641 Presence of right artificial hip joint
CPT/HCPCS: 97110; 97112; 97140; 97163; 97164; 97530

== ENCOUNTER → 2022-01-29 14:28 | Outpatient (CLI) | payer MEDICARE, MEDICAID, SELFPAY ==
--- NOTE | 2022-01-29 14:32 | XR_ITS ---
FINAL REPORT CLINICAL HISTORY: rt pain COMPARISON: 10/30/2021 FINDINGS: PELVIS WITH RIGHT HIP 3 views were obtained. There are stable, postoperative changes from right hip arthroplasty. There is no acute fracture or dislocation. The joint spaces are intact. There are stable, lateral soft tissue calcifications. IMPRESSION: Postoperative changes with no acute bony abnormality. Reviewed, Interpreted and Dictated by Benito Jessica III, MD Transcribed by Daniella Parsons Authenticated by Benito Jessica III, MD on 01/29/2022 04:12:25 PM [facility]
== END ==
PROVIDERS: PCP Internal Medicine Adolescent Medicine; Visit Provider Orthopaedic Surgery
DX: M25.551 Pain in right hip (principal)
CPT/HCPCS: 73502

== ENCOUNTER → 2022-05-27 09:46 | Outpatient (CLI) | payer MEDICARE, MEDICAID, SELFPAY ==
--- NOTE | 2022-05-27 09:51 | XR_ITS ---
FINAL REPORT CLINICAL HISTORY: s/p right hip COMPARISON: 01/29/2022 FINDINGS: RIGHT HIP Two views of the right hip including an AP pelvis demonstrate no acute fracture or dislocation. There are postoperative changes from right hip arthroplasty which appears stable. There are moderate to severe degenerative changes of the left hip and the lower lumbar spine. The visualized bony structures are well aligned. There are lateral soft tissue calcifications. IMPRESSION: Postoperative changes appears stable. Moderate to severe degenerative change in the left hip and lower lumbar spine. Reviewed, Interpreted and Dictated by Benito Jessica III, MD Transcribed by Samantha Guardado Authenticated and . [facility]
== END ==
PROVIDERS: PCP Internal Medicine Adolescent Medicine; Visit Provider Orthopaedic Surgery
DX: Z96.641 Presence of right artificial hip joint (principal); M25.551 Pain in right hip
CPT/HCPCS: 73502

== ENCOUNTER → 2022-06-17 08:33 | Outpatient (CLI) | payer MEDICARE, MEDICAID, SELFPAY ==
--- NOTE | 2022-06-17 08:39 | XR_ITS ---
FINAL REPORT CLINICAL HISTORY: lt hip pain..no trauma COMPARISON: May 27, 2022 FINDINGS: LEFT HIP Two views of the left hip with an AP pelvis demonstrate postoperative changes from right hip arthroplasty. There is no acute fracture or dislocation. There is severe degenerative changes of the left hip and the lower lumbar spine. The visualized bony structures are well aligned. No soft tissue abnormality is seen. IMPRESSION: Severe degenerative change, stable from the prior exam. Reviewed, Interpreted and Dictated by Benito Jessica III, MD Transcribed by Samantha Guardado Authenticated and [facility]
== END ==
PROVIDERS: PCP Internal Medicine Adolescent Medicine; Visit Provider Physician Assistant Surgical
DX: M25.551 Pain in right hip (principal)
CPT/HCPCS: 73502

== ENCOUNTER → 2022-11-13 11:29 | Outpatient (CLI) | payer MEDICARE, MEDICAID, SELFPAY ==
--- NOTE | 2022-11-13 11:35 | XR_ITS ---
FINAL REPORT CLINICAL HISTORY: s/p Rt BRITT Pelvis is with left hip order COMPARISON: 06/17/2022 FINDINGS: RIGHT HIP Two views of the right hip demonstrate no acute fracture. There are postoperative changes from right hip arthroplasty, stable. The visualized bony structures are well aligned. No soft tissue abnormality is seen. IMPRESSION: Right hip arthroplasty, stable. No acute bony abnormality. Reviewed, Interpreted and Dictated by Benito Jessica III, MD Transcribed by Samantha Guardado Authenticated and [facility]
--- NOTE | 2022-11-13 11:35 | XR_ITS ---
FINAL REPORT CLINICAL HISTORY: hip pain COMPARISON: 06/17/2022 FINDINGS: LEFT HIP Two views of the left hip with an AP pelvis demonstrate no acute fracture or dislocation. There are postoperative changes from right hip arthroplasty. There are severe left hip degenerative changes, stable. The visualized bony structures are well aligned. No soft tissue abnormality is seen. IMPRESSION: Severe left hip degenerative changes, stable. No acute bony abnormality. Reviewed, Interpreted and Dictated by Benito Jessica III, MD Transcribed by Samantha Guardado Authenticated and [facility]
== END ==
PROVIDERS: PCP Internal Medicine Adolescent Medicine; Visit Provider Nurse Practitioner Family
DX: Z96.641 Presence of right artificial hip joint (principal); M16.12 Unilateral primary osteoarthritis, left hip; M25.551 Pain in right hip
CPT/HCPCS: 73502

== ENCOUNTER → 2023-01-01 11:22 | Outpatient (CLI) | payer MEDICARE, MEDICAID, SELFPAY | PROVIDERS: PCP Internal Medicine Adolescent Medicine; Visit Provider Orthopaedic Surgery | DX: Z01.818 Encounter for other preprocedural examination (principal); Z11.52 Encounter for screening for COVID-19 | CPT/HCPCS: C9803; U0003; U0005 ==

== ENCOUNTER → 2023-04-01 16:00 | Outpatient (CLI) | payer MEDICARE, MEDICAID, SELFPAY ==
--- NOTE | 2023-04-01 16:25 | XR_ITS ---
PROCEDURE INFORMATION: Exam: XR Right Wrist Exam date and time: 04/01/2023 4:27 PM Age: 72 years old Clinical indication: Pain; Wrist; Right; Patient HX: Possible carpal tunnel. ; Additional info: Wrist pain TECHNIQUE: Imaging protocol: Radiologic exam of the right wrist. Views: 3 or more views. COMPARISON: No relevant prior studies available. FINDINGS: Bones/joints: Mild degenerative changes of the 1st CMC joint. No visible fracture or dislocation. Soft tissues: Normal. IMPRESSION: No visible fracture or dislocation.
--- NOTE | 2023-04-01 16:25 | XR_ITS ---
PROCEDURE INFORMATION: Exam: XR Left Wrist Exam date and time: 04/01/2023 4:27 PM Age: 72 years old Clinical indication: Pain; Wrist; Left; Patient HX: Possible carpal tunnel. ; Additional info: Wrist pain TECHNIQUE: Imaging protocol: Radiologic exam of the left wrist. Views: 3 or more views. COMPARISON: No relevant prior studies available. FINDINGS: Bones/joints: No visible acute fracture or dislocation. Chronic avulsion fracture of the ulnar styloid process. Moderate degenerative changes of the 1st CMC joint. Soft tissues: Normal. IMPRESSION: No visible acute fracture or dislocation.
== END ==
PROVIDERS: PCP Internal Medicine Adolescent Medicine
DX: M25.532 Pain in left wrist (principal); M25.531 Pain in right wrist
CPT/HCPCS: 73110

== ENCOUNTER 2023-04-22 13:00 | Outpatient (RCR) | payer MEDICARE, MEDICAID, SELFPAY ==
--- NOTE | 2023-04-01 15:54 | HMH.PTOPEV ---
PT Outpatient Evaluation Rehab PT Outpatient Evaluation Start: 04/01/23 14:54 Freq: Status: Active Protocol: Document 04/01/23 14:54 TREGM (Rec: 04/01/23 15:54 ANNY [id number]) E-signed By Lisa Daniel, PT Outpatient Therapy Subjective History Subjective History Pt is a 72 y/o female who reports onset of posterolateral right knee pain a few weeks ago. Pt denies falls or trauma. Pt reports she may have pulled it while getting in/out the car. Pt reports she had both hips replaced recently and has to put one leg in the car at a time often stretching the opposite leg. Pt denies back pain or numbness/tingling. Pt denies warmth, redness or swelling in the area. Pt denies having recent imaging of the hip or knee. Pt also reports recent onset of right knee popping with walking, denies pain with this. Pt reports her right knee will give out randomly while walking as well so she started using a quad cane for community ambulation. Pt reports pain is aggravated by walking <5 minutes and going up stairs on her sidewalk. Medical History: High blood pressure, A fib, R hip Sep 2022, L hip December 2022, hx of R drop foot after the surgery Chief Complaint Pain,Swelling,Gives out/ Unstable Symptom Type Sharp Symptoms Relieved By Rest/Positioning,OTC Meds Symptoms Aggravated By Physical Activity,Walking Prior Functional Limitations None Current Functional Limitations Housework,Dressing,Standing, Walking,Stairs Symptom Description Intermittent Level of pain today (0-10) 0 Pain scale - at its best (0-10) 0 Pain scale - at its worst (0-10) 8 Hip/Knee Eval Gait Observation General Gait Pattern Observation Decrease Weight Bear (R) Assistive Device Assistive Devices Straight Cane Palpation Tenderness right Knee Palpation Finding Tenderness
== END 2023-04-22 14:30 | disposition home or self-care (01) ==
LOC: PT 13:00
PROVIDERS: PCP Internal Medicine Adolescent Medicine; Visit Provider Internal Medicine Adolescent Medicine
DX: M25.561 Pain in right knee (principal); S76.311D Strain of muscle, fascia and tendon of the posterior muscle group at thigh level, right thigh, subsequent encounter
CPT/HCPCS: 97010; 97014; 97110; 97163; 97530; G0283

== ENCOUNTER 2024-11-08 07:15 | Day surgery (SDC) | payer MEDICARE, MEDICAID, SELFPAY ==
[2024-11-04 10:47] VITALS: BMI 42.3
[2024-11-08 07:34] VITALS: BP 151/66; PULSE 62; RESP 20; TEMP 36.4; O2SAT 96
[2024-11-08] MEDS: PHENYLEPHRINE 2.5% OPHTH SOLN 2ML OP ×3 (07:45→07:55)
[2024-11-08] MEDS: TETRACAINE 0.5% OPTH SOL 15ML OP ×3 (07:45→07:55)
[2024-11-08] MEDS: CYCLOPENTOLATE 2% OPHTH SOLN 2ML BOTTLE OP ×3 (07:45→07:55)
[2024-11-08 08:33] VITALS: BP 131/63; PULSE 60; RESP 18; O2SAT 98
[2024-11-08] MEDS: TRI-MOXI 15MG/1MG/ML 1ML OPHTH VIAL 1 ML OP (08:33)
[2024-11-08] MEDS: LIDOCAINE 1% PF 2ML AMPULE 2 ML IJ (08:33)
[2024-11-08] MEDS: TIMOLOL 0.5% OPTH SOLN 5ML OP (08:33)
[2024-11-08] MEDS: SODIUM CHLORIDE 0.9% 10ML FLUSH SYRINGE 10 ML IV (08:33)
[2024-11-08] MEDS: MIDAZOLAM 2MG/2ML VIAL 2 MG (08:33)
[2024-11-08 08:38] VITALS: BP 129/61; PULSE 61; RESP 18; O2SAT 97
[2024-11-08 08:43] VITALS: BP 116/56; PULSE 56; RESP 18; O2SAT 97
[2024-11-08 08:48] VITALS: BP 116/56; PULSE 55; RESP 18; O2SAT 97
[2024-11-08 08:56] VITALS: BP 157/81; PULSE 55; RESP 18; TEMP 36.2; O2SAT 100
--- NOTE | 2024-11-08 11:40 | HMH.PROCNOTE ---
[facility] Procedure Note Date: 11/08/24 Time: 11:40 Procedure Note:: Preoperative Diagnosis: Cataract combined NS Cortical Complex [Right] Eye Postop diagnosis: same Operation: Microscopic phacoemulsification with intraocular lens implant [Right] Eye Specimen: None Blood Loss: None The patient was examined in the office with a complaint of poor vision in the [right] eye. The patient reports that this interferes with ADLs such as reading, watching TV and/or driving or the vision is like looking through a foggy haze and is very troubling. The patient was examined and found to have a visually significant cataract with best corrected vision of [20/400] by refraction and/or glare testing. Treatment options, risks and benefits were explained and the patient elected to have cataract surgery in an attempt to improve their vision. The patient had the eye anesthetized with topical tetracaine, the eye ways prepped and draped in the usual fashion for cataract surgery. A paracentesis and a temporal keratotomy were made. 0.2cc of 1% lidocaine PF was placed into the anterior chamber. And aqueous/viscoelastic exchange was done and a 360 degree capsulorexis was performed. Through hydrodissection and delineation with BSS on a cannula was done. The lens nucleus was phecoemulsified with CDE of [7.04]. Residual cortical material was removed using automated I&A The capsular bag was deepened with viscoelastica and a PCIOL was placed in the capsular bag with good centration and stability. Residual viscoelastic was removed using automated I&A. The keratotomy incision was hydrated with BSS on a cannula. The wound were checked and found to be water tight. IOP was checked digitally and adjusted as needed so as not to be too high. 1 drop of timolol 0.5%, ofloxacin, prednisolone acetate and ketorolac was instilled and eye shield taped over the eye. The patient was taken to recovery in good condition and will be seen postoperatively.
== END 2024-11-08 09:00 | disposition home or self-care (01) ==
PROVIDERS: PCP Internal Medicine Adolescent Medicine; Visit Provider Ophthalmology
PROC: (CPT 66984; principal; 2024-11-08 09:00)
DX: H25.011 Cortical age-related cataract, right eye (principal)
CPT/HCPCS: 66984; J2250; V2632

== ENCOUNTER 2024-11-21 08:51 | Outpatient (CLI) | payer MEDICARE, MEDICAID, SELFPAY ==
--- NOTE | 2024-11-21 08:53 | US_ITS ---
PROCEDURE: US TRANSVAGINAL CLINICAL INDICATION: POSTMENOPAUSAL BLEEDING COMPARISON: No exams were available for comparison FINDINGS: Transvaginal and transabdominal sonographic images of the pelvis were obtained. UTERUS: 7.2cm x 4.7 cmx 3.3cm anteverted with a combined endometrial thickness of 15.9 mm. The endometrium appears homogeneous. There is a nabothian cyst in the cervix. LEFT OVARY: Was not visualized. RIGHT OVARY: Was not visualized. Both ovaries are not visualized. There is no fluid in the cul-de-sac. IMPRESSION: 1. Anteverted uterus normal in shape and size. There is a small nabothian cyst in the cervix. 2. The endometrium is markedly thickened and homogeneous. Suggest endometrial sampling. 3. The ovaries were not visualized today attempted both transvaginally and transabdominally. 4. No fluid in the cul-de-sac. 5. A message was left with Dr. Gloria's office regarding these findings. Dictated by: Ethan Segovia MD 11/21/2024 11:43 Ethan Segovia MD in [place] 11/21/2024 11:43
== END 2024-11-21 23:59 | disposition home or self-care (01) ==
LOC: RAD 08:51
PROVIDERS: PCP Internal Medicine Adolescent Medicine; Visit Provider Internal Medicine Adolescent Medicine
DX: N95.0 Postmenopausal bleeding (principal)
CPT/HCPCS: 76830

== ENCOUNTER 2024-12-09 10:39 | Outpatient (CLI) | payer MEDICARE, MEDICAID, SELFPAY ==
--- NOTE | 2024-12-09 10:40 | MM_ITS ---
PROCEDURE INFORMATION: Exam: MG Bilateral Screening 3D Mammography Exam date and time: 12/09/2024 10:51 AM Age: 74 years old Clinical indication: Screening exam. TECHNIQUE: Imaging protocol: Bilateral Screening tomosynthesis and 2D mammography including computer-aided detection (CAD) when performed. COMPARISON: 1. MG MM DIG SCREENING MAMM BI W/CAD 12/24/2021 2:47 PM 2. MG MM DIG SCREENING MAMM BI W/CAD 09/03/2020 4:25 PM FINDINGS: MAMMOGRAPHY: Breast composition: There are scattered areas of fibroglandular density. Mass: No suspicious masses. Architectural distortion: None. Calcifications: No suspicious calcifications. Asymmetric density: None. Skin thickening: None. Axillary adenopathy: None. IMPRESSION: No mammographic evidence of malignancy. Annual screening is recommended unless otherwise clinically indicated. ASSESSMENT: BI-RADS Category 1: Negative.
== END 2024-12-09 23:59 | disposition home or self-care (01) ==
LOC: RAD 10:40
PROVIDERS: PCP Internal Medicine Adolescent Medicine; Visit Provider Nurse Practitioner Obstetrics & Gynecology
DX: Z12.31 Encounter for screening mammogram for malignant neoplasm of breast (principal)
CPT/HCPCS: 77063; 77067

== ENCOUNTER 2025-02-14 11:32 | Outpatient (CLI) | payer MEDICARE, MEDICAID, SELFPAY ==
--- OUTSIDE RECORDS SUMMARY | 2025-02-14 11:35 | XMS_ITS | Continuity of Care Document ---
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 It does not include entries that were removed or entered in error. Problem Status Onset Date Problem Type Date of Resolution Comments Source Diagnosis: ICD-10-CM Z71.0 Prsn encntr hlth serv to consult on behalf of another person Active Diagnosis [facility] Encounters Combined list of: 1) Encounters from [facility] facilities going backup to the last 18 months, not all [place] inpatient encounters are included; 2) Encounters from the Department of [facility] facilities going backup to 280 months. Location Location Details Encounter Type Encounter Number Reason For Visit Attending Provider ADM Date DC Date Status Disposition Source [facility] Outpatient Encounter [id number] 03/22 [place] [facility] Outpatient Encounter [id number] 03/22 [place] [facility] HC PRO PHONE CALL 21-30 MIN [id number] Diagnos is: ICD-10- CM Z71.0 Prsn encntr hlth serv to consult on behalf of another person JAYESH TRAVIS 04/07 [place] [facility] HC PRO PHONE CALL 5-10 MIN [id number] Diagnos is: ICD-10- CM Z71.0 Prsn encntr hlth serv to consult on behalf of another person JAYESH TRAVIS 06/15 [place] [facility] HC PRO PHONE CALL 5-10 MIN [id number] Diagnos is: ICD-10- CM Z71.0 Prsn encntr hlth serv to consult on behalf of another person TRAVISJAYESH MYLES 06/15 [place] [facility] HC PRO PHONE CALL 5-10 MIN [id number] Diagnos is: ICD-10- CM Z71.0 Prsn encntr hlth serv to consult on behalf of another person THADDEUSJAYESH MYLES 06/24 [place] [facility] PH1 ASSMT&MGMT NQHP 5-10 [id number] Diagnos is: ICD-10- CM Z71.0 Prsn encntr hlth serv to consult on behalf of another person THADDEUSJAYESH MYLES 12/12 [place] [facility] Outpatient Encounter [id number] 12/12 [place] [facility] Outpatient Encounter [id number] 12/13 [place] [facility]
[2025-02-14 12:11] VITALS: BMI 43.4
--- NOTE | 2025-02-14 12:24 | ECG_ITS ---
APPROVED REPORT Exam: Resting ECG HR:54 bpm ECG Measurements Heart Rate 54 AXES ND 201 P 71 QRSd 83 QRS -4 QT 428 T 16 QTc 415 Conclusion SINUS BRADYCARDIA MINIMAL ST DEPRESSION [0.025+ mV ST DEPRESSION] BORDERLINE ECG UNCONFIRMED REPORT Electronically signed by : Neftaly Gloria MD 02/15/2025 08:08:14
[2025-02-14 12:38] LABS: Basophils # 0.1 K/mm3 (0-0.2); Basophils % 0.6 % (0.1-2.0); Eosinophils # 0.2 Kmm3 (0.0-0.4); Eosinophils % 2.6 % (0.1-12.0); Hematocrit 36.5 % (37.0-47.0); Hemoglobin 11.9 g/dL (12.2-16.2); Immature Granulocytes # 0.02 10^3uL; Immature Granulocytes % 0.2 %; Lymphocytes # 3.4 K/mm3 (0.7-4.5); Lymphocytes % 37.7 % (10-50); Mean Corpuscular HGB Conc 32.6 g/dL (31.8-35.4); Mean Corpuscular Hemoglobin 30.6 pg (27.0-31.2); Mean Corpuscular Volume 93.8 fl (81-99); Mean Platelet Volume 11.2 fl (7.4-10.4); Monocytes # 0.8 K/mm3 (0.1-1.0); Monocytes % 9.2 % (1.7-9.3); Neutrophils # 4.5 K/mm3 (1.8-7.8); Neutrophils % 49.7 % (37.0-80.0); Nucleated Red Blood Cells # 0 10^3/uL; Nucleated Red Blood Cells % 0 %; Platelet Count 211 K/mm3 (142-424); Red Blood Count 3.89 M/mm3 (4.20-5.40); Red Cell Distribution Width 14.1 % (11.5-17.5); Red Cell Distribution Width-SD 48.3 fL; White Blood Count 9.1 K/mm3 (4.8-10.8)
[2025-02-14 12:43] LABS: Chloride 105 mmol/L (98-107); Potassium 4.3 mmoL/L (3.5-5.1); Sodium 139 mmol/L (136-145)
[2025-02-14 12:46] LABS: Alanine Aminotransferase 23 U/L (12-78); Albumin/Globulin Ratio 1.3 (1.1-1.8); Alkaline Phosphatase 102 U/L (38-126); Anion Gap 9.3 mEq/L (5-15); Aspartate Amino Transferase 30 U/L (14-36); Bilirubin,Total 0.4 mg/dl (0.2-1.3); Blood Urea Nitrogen 24 mg/dl (7-17); Calcium 9.1 mg/dl (8.4-10.2); Carbon Dioxide 29 mmol/L (22.0-30.0); Creatinine Clearance Estimated 29 mL/min (50-200); Estimated Glomerular Filt Rate 40 ml/min (>60); GFR (African American) 48 ML/MIN (>60); Glucose 86 mg/dl (74-100)
== END 2025-02-14 23:59 | disposition home or self-care (01) ==
LOC: PREOP 11:34
PROVIDERS: PCP Internal Medicine Adolescent Medicine; Visit Provider Nurse Practitioner Obstetrics & Gynecology
DX: Z01.810 Encounter for preprocedural cardiovascular examination (principal); Z01.812 Encounter for preprocedural laboratory examination; R00.1 Bradycardia, unspecified; R94.31 Abnormal electrocardiogram [ECG] [EKG]
CPT/HCPCS: 80053; 85025; 93005

== ENCOUNTER 2025-02-20 08:27 | Day surgery (SDC) | payer MEDICARE, MEDICAID, SELFPAY ==
[2025-02-14 14:08] VITALS: BMI 43.4
[2025-02-20] VITALS (11 sets, daily range): BP systolic 105–142; BP diastolic 48–74; PULSE 56–67; RESP 16–61; TEMP 36.2–36.8; O2SAT 93–98
[2025-02-20] MEDS: LACTATED RINGERS 1000ML 1,000 ML 25 ML IV (09:46)
--- NOTE | 2025-02-20 09:55 | EXP.ANES.CKL ---
[facility] Disclaimer: The information contained in this section may have been updated after the patient was seen, as this information can be updated by other users. Medical History Sleep apnea History of COVID-19 History of gastroesophageal reflux (GERD) Hypothyroid Atrial fibrillation History of cataract Hyperlipidemia Hypertension History of lymphoma Edema feet Thyroid cancer Surgical History History of surgery heart cath - no stents H/O tubal ligation History of left cataract surgery H/O lumpectomy left History of cholecystectomy History of discectomy History of hip replacement [place] hip sx H/O thyroidectomy Status post hip surgery Family History Other Heart disease Stroke Social History (Updated 02/20/25 @ 09:34 by Kathryn Purdy RN) Smoking Status: Never smoker second hand exposure: No alcohol intake: never substance use type: denies use current occupational status: retired Travel in the last 8 weeks?: None household members: spouse housing: house current occupational exposures/hazards: No caffeine: Yes Have you lived/traveled outside [place] in past 30 days?: No Contact w/someone who lives/traveled outside US past 30 days?: No Exposure to someone with infectious disease in past 14 days?: No Do you have a fever (greater than 100.4 F or 38 C)?: No Have you tested positive for COVID-19?: No Exposed to someone with COVID-19 in past 14 days?: No Do you have a sore throat?: No Do you have a cough?: No Do you have any weakness?: No Are you experiencing any nausea/vomitting?: No Do you have any diarrhea?: No Are you experiencing any unusual bleeding?: No Do you have any muscle aches/pain?: No Do you have any abdominal pain?: No Are you experiencing loss of taste or smell?: No [facility] Anesthesia Checklist Patient Identification Patient Identification: Arm Band Structural Data Admitted From: Home Planned Operative Procedure/s: Hysteroscopy, D&C, Myosure Ablation Consent for Planned Operative Procedure(s) Verified: Yes Verified Documents: Surgical Consent and History and Physical NPO Status Verified Time NPO: 00:00 Additional verifications Anesthesia Reactions: No Hx Blood Transfusions: No Blood Transfusion Reaction: No Airway Assessment Mallampati Score:: Class II C-Spine Mobility Assessed: Yes TMJ Mobility Assessed: Yes Dentition: Good Dentition Neurological Assessment Level of Consciousness: Awake, Alert and Appropriate Anesthesia Plan Anesthesia Risk discussed: Yes Anesthesia Plan: Verified ASA Class: III Anesthesia Type: General
[2025-02-20] MEDS: ROPIVACAINE 0.5% 30ML VIAL 150 MG (10:23)
[2025-02-20] MEDS: CEFAZOLIN SODIUM 2 GM in 0.9 % SODIUM CHLORIDE 100 ML IV (10:23)
[2025-02-20] MEDS: SODIUM CHLORIDE IRRIG SOLUTION 3,000 ML 3000 ML IR (10:23)
--- NOTE | 2025-02-20 10:35 | EXP.OP.NOTE ---
Date of procedure: 02/20/25 Pre-op Diagnosis:: Postmenopausal bleeding, thickened endometrium Post-op Diagnosis:: Postmenopausal bleeding, thickened endometrium, endometrial polyps Procedure performed:: Hysteroscopy, MyoSure endometrial sampling and MyoSure polypectomy Surgeon:: Ethan Segovia MD [employer] SUPERVISOR:: Other (Kathi Ellison) Anesthesia: LMA Estimated blood loss (mL): 25 Clinical Note:: She is a 74-year-old lady who had postmenopausal bleeding. An ultrasound showed that the endometrium was thickened and as result of that she was offered MyoSure endometrial sampling. Operative findings:: She had an anteverted small uterus. On examination of the endometrial cavity there were 2 polyps. A 2 cm polyp on the right-hand side and a 1 cm polyp on the inferior aspect of the endometrium close to the lower uterine segment. The endometrium appeared lush as well. Operative note:: She was taken off room where LMA anesthesia was found to be adequate. She was prepped draped our sterile fashion lithotomy position. A weighted speculum was placed within the vagina and the anterior lip of the cervix was grasped with a tenaculum. I then dilated the cervix to approximately 6 mm. Then using a MyoSure hysteroscope I entered the uterine cavity. The findings were previous dictated. Then using the MyoSure device I was able to shave off the 2 polyps. I also shaved most of the endometrial cavity with the MyoSure device. The specimens were taken to pathology. We then injected approximately 20 cc of 0.25% ropivacaine at the 5:00 and 7:00 positions of the cervix. She tolerated seizure well and was taken recovery next condition. All sponge, instrument counts were correct. Estimated blood loss was less than 25 cc. Condition: stable Disposition: PACU Specimens:: Endometrial sampling's, endometrial polyps Complications:: None
--- NOTE | 2025-02-20 10:39 | EXP.ANES.I ---
[facility] Anesthesia Record Part I Anesthesia Record I Intake, IV Amount: 300 Hydration: Adequate Estimated blood loss (mL): 25 Urine output (mL): 0 Blood Products used (#): none Blood Pressure: 113/54 SaO2: 93 Pulse Rate: 65 Airway Patency: Patent Respiratory Rate: 16 Temperature: 98.2 F Patient is:: Drowsy and Stable Stable to PACU at:: 10:35
[2025-02-20] MEDS: HYDROMORPHONE 2MG/ML SYRINGE 0.5 MG IV ×2 (10:56→11:04)
--- NOTE | 2025-02-20 16:05 | EXP.ANES.II ---
[facility] Anesthesia Record Part II Anesthesia Record Part II Discharge Time: 11:18 Destination: Surgical Day Care (OP Surgery) PACU nurse assessment reviewed?: Yes Patient Condition:: Good Anesthesia Complications:: None Swallowing reflex intact?: Yes Airway Patency: Patent Cyanosis?: No Blood Pressure: 126/71 SaO2: 98 Respiratory Rate: 61 Pulse Rate: 61 Temperature: 98.2 F Mental Status: Alert & Oriented Pain level:: 2 Nausea and/or vomitting:: None Intake, IV Amount: 0 Hydration: Adequate
== END 2025-02-20 12:10 | disposition home or self-care (01) ==
PROVIDERS: PCP Internal Medicine Adolescent Medicine; Visit Provider Nurse Practitioner Obstetrics & Gynecology
PROC: 0UDB8ZZ Extraction of Endometrium, Via Natural or Artificial Opening Endoscopic (ICD-10-PCS; CPT 58558; principal; 2025-02-20 10:00)
DX: N92.4 Excessive bleeding in the premenopausal period (principal); R93.89 Abnormal findings on diagnostic imaging of other specified body structures; N84.0 Polyp of corpus uteri
CPT/HCPCS: 58558; 96374; J0690; J1100; J1171; J2405; J3010; J7120

== ENCOUNTER 2025-06-05 09:11 | Outpatient (CLI) | payer MEDICARE, MEDICAID, SELFPAY ==
--- OUTSIDE RECORDS SUMMARY | 2024-12-13 05:47 | XMS_ITS | Continuity of Care Document ---
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 It does not include entries that were removed or entered in error. Problem Status Onset Date Problem Type Date of Resolution Comments Source Diagnosis: ICD-10-CM Z71.0 Prsn encntr hlth serv to consult on behalf of another person Active Diagnosis [facility] Encounters Combined list of: 1) Encounters from [facility] facilities going backup to the last 18 months, not all [place] inpatient encounters are included; 2) Encounters from the [facility] facilities going backup to 280 months. Location Location Details Encounter Type Encounter Number Reason For Visit Attending Provider ADM Date DC Date Status Disposition Source [facility] Outpatient Encounter [id number] 03/22 [place] [facility] Outpatient Encounter [id number] 03/22 [place] [facility] HC PRO PHONE CALL 21-30 MIN [id number] Diagnos is: ICD-10- CM Z71.0 Prsn encntr hlth serv to consult on behalf of another person JAYESH TRAVIS 04/07 [place] [facility] HC PRO PHONE CALL 5-10 MIN [id number] Diagnos is: ICD-10- CM Z71.0 Prsn encntr hlth serv to consult on behalf of another person JAYESH TRAVIS 06/15 [place] [facility] HC PRO PHONE CALL 5-10 MIN [id number] Diagnos is: ICD-10- CM Z71.0 Prsn encntr hlth serv to consult on behalf of another person TRAVISJAYESH MYLES 06/15 [place] [facility] HC PRO PHONE CALL 5-10 MIN [id number] Diagnos is: ICD-10- CM Z71.0 Prsn encntr hlth serv to consult on behalf of another person THADDEUSJAYESH MYLES 06/24 [place] [facility] PH1 ASSMT&MGMT NQHP 5-10 [id number] Diagnos is: ICD-10- CM Z71.0 Prsn encntr hlth serv to consult on behalf of another person THADDEUSJAYESH MYLES 12/12 [place] [facility] Outpatient Encounter [id number] 12/12 [place] [facility] Outpatient Encounter [id number] 12/13 [place] [facility]
--- NOTE | 2025-06-05 09:11 | XR_ITS ---
FINAL REPORT CLINICAL HISTORY: pain FINDINGS: AP, oblique, and lateral views of the left hand were obtained. There is no prior exam for comparison. There is no acute fracture of the left hand. 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 The soft tissues are normal. IMPRESSION: No acute osseous abnormality of the left hand. Reviewed, Interpreted and Dictated by Mari Obregon MD Transcribed by Zarina Aly Authenticated and [facility]
--- OUTSIDE RECORDS SUMMARY | 2025-06-05 09:48 | XMS_ITS | Continuity of Care Document ---
Author Organization Healthcare Address [address] [place] [address] Care Team Providers Care Restaurant Assistant Name Role Phone Neftaly Gloria MD Primary Care Provider [phone] Encounters Date Type Department Care Team Description 02/24/2023 1:14 PM EDT - 02/24/2023 11:59 PM EDT Hospital Encounter Medical Office Building Radiology [address] [place] [address] Postoperative examination Discharge Disposition: Home or Self Care 02/24/2023 Travel 02/24/2023 1:40 PM EDT Office Visit Medical Office Building Surgery Sp[facility] & [facility] [address] [facility], [address] [place] [address] Kasia Chaudhary MD Postoperative examination (Primary Dx); Aftercare following left hip joint replacement surgery 01/20/2023 Travel 01/20/2023 1:00 PM EDT Office Visit Medical Office Building Surgery Sp[facility] & [facility] [address] [facility], [address] [place] [address] Kasia Chaudhary MD S/P total left hip arthroplasty (Primary Dx) 01/12/2023 Telephone Medical Office Building Surgery Spine & Joint [address] [facility], [address] [place] [address] Kasia Chaudhary MD HCN - Patient Message 01/06/2023 5:24 AM EDT - 01/07/2023 5:30 PM EDT Hospital Encounter [facility] Inpatient [address] [place] [address] Kasia Chaudhary MD Primary osteoarthritis of left hip (Primary Dx); Class 3 severe obesity due to excess calories with body mass index (BMI) of 40.0 to 44.9 in adult, unspecified whether serious comorbidity present (CMS/HCC); Osteoarthritis of left hip Discharge Disposition: Home or Self Care 01/06/2023 Travel 01/06/2023 7:30 AM EDT - 01/06/2023 10:40 AM EDT Surgery [facility] S Operating Room [address] [place] [address] Kasia Chaudhary MD ARTHROPLASTY, HIP, TOTAL [12913 (CPT )] 01/06/2023 7:25 AM EDT Anesthesia Event [facility] S Operating Room [address] [place] [address] Liam Hodgson MD Tesar, Stephanie P, KATHY 12/25/2022 Travel 12/25/2022 11:00 AM EDT Pre-Admission Testing [facility] S Anesthesia [address] [place] [address] Hypertension, unspecified type (Primary Dx); Osteoarthritis of left hip, unspecified osteoarthritis type 11/25/2022 1:00 PM EST - 11/25/2022 11:59 PM EST Hospital Encounter Medical Office Building Radiology [address] [place] [address] Osteoarthritis of left hip Discharge Disposition: Home or Self Care 11/25/2022 11:50 AM EST - 11/25/2022 12:59 PM EST Hospital Encounter Medical Office Building Radiology [address] [place] [address] Hip pain, left Discharge Disposition: Home or Self Care 11/25/2022 Travel 11/25/2022 12:20 PM EST Office Visit Medical Office Building Surgery Spine & Joint [address] [facility], [address] [place] [address] Kasai Chaudhary MD Osteoarthritis of left hip (Primary Dx); Class 3 severe obesity due to excess calories with body mass index (BMI) of 40.0 to 44.9 in adult, unspecified whether serious comorbidity present (CMS/HCC) 09/01/[address] [facility] [address] [facility] OUTPATIENT CONVERSIONS [address] [place] [address] Provider, Historical 11/12/2015 [facility] [address] [address] [facility] OUTPATIENT CONVERSIONS [address] [place] [address] Provider, Historical 04/16/2015 [facility] [address] [address] [facility] OUTPATIENT CONVERSIONS [address] [place] [address] Provider, Historical Allergies No known active allergies Medications allopurinol (Zyloprim) 300 MG tablet Take 300 mg by mouth 1 (one) time each day. 2 Active buPROPion XL (Wellbutrin XL) 150 MG 24 hr tablet Take 150 mg by mouth 1 (one) time each day in the morning. 2 Active furosemide (Lasix) 40 MG tablet Take 40 mg by mouth 1 (one) time each day. 2 Active levothyroxine (Synthroid, Levoxyl) 125 MCG tablet Take 125 mcg by mouth 1 (one) time each day. 3 Active lisinopril 40 MG tablet Take 40 mg by mouth 2 (two) times a day. 2 Active nadolol (Corgard) 20 MG tablet Take 20 mg by mouth 2 (two) times a day. 2 Active omeprazole (PriLOSEC) [address] capsule Take 40 mg by mouth 2 (two) times a day. 2 Active pregabalin (Lyrica) 100 MG capsule Take 100 mg by mouth every night. 3 Active simvastatin (Zocor) 20 MG tablet Take 20 mg by mouth every night. 3 Active Calcium Carbonate-Vitam in D (CALCIUM 600+D PO) Take by mouth 1 (one) time each day. Active methocarbamol (Robaxin) 500 MG tablet Take 1 tablet (500 mg total) by mouth 3 (three) times a day if needed for muscle spasms for up to 10 days. 30 tablet 3 Active acetaminophen (Tylenol Extra Strength) 500 MG tablet Take 2 tablets (1,000 mg total) by mouth every 8 (eight) hours. 100 tablet 3 Active Additional Information Patient not taking.Reported on 02/24/2023 traMADol (Ultram) 50 MG tablet Take 1 tablet (50 mg total) by mouth every 4 (four) hours if needed for severe pain. 60 tablet Active Additional Information Patient not taking.Reported on 01/20/2023 Active Problems Problem Noted Date Diagnosed Date Primary osteoarthritis of left hip 01/06/2023 Class 3 severe obesity due t o excess calories with body mass index (BMI) of 40.0 to 44.9 in adult 11/25/2022 Osteoarthritis of left hip 11/25/2022 Family History Medical History Relation Name Comments Dementia Father Diabetes Father Stroke Father Heart attack Mother Cancer Other Hypertension, benign Other Mental illness Other Anesthesia problems Neg Hx Malig Hyperthermia Neg Hx Relation Name Status Comments Father Mother Other Social History Smoking Status as of 06/05/2025 Tobacco Use Types Packs/Day Years Used Date Smoking Tobacco: Never Assessed CAGE ASSESSMENT Answer Date Recorded Cage unable to access Not on file 01/06/2023 Cage max number of drinks Not on file 2022 Cage Beverages a week Not on file 01/06/2023 Have you ever felt you should CUT down on your d rinking? 0 01/06/2023 Have you been ANNOYED by people criticizing your drinking? 0 01/06/2023 Have you felt GUILTY about your drinking? 0 01/06/2023 Have you had a drink first t luis in the morning (EYE-STONE CUTTER) to steady your nerves or to get rid of a hangover? 0 01/06/2023 CAGE Questionnaire Score 0 023 Sex and Gender Information Value Date Recorded Sex Assigned at Not on file Legal Sex Female 5:58 PM EDT Gender Identity Not on file Sexual Orientation Not on file Last Filed Vital Signs Vital Sign Reading Time Taken Comments Blood Pressure 137/73 02/24/2023 1:42 PM EDT Pulse 82 02/24/2023 1:42 PM EDT Temperature 36.5 C (97.7 F) 01/07/2023 11:02 AM EDT Respiratory Rate 16 01/07/2023 11:02 AM EDT Oxygen Saturation 96% 01/07/2023 11:02 AM EDT Inhaled Oxygen Concentration - - Weight 103 kg (227 lb 1.2 oz) 02/24/2023 1:42 PM EDT Height 154.9 cm (5' 1 ) 02/24/2023 1:42 PM EDT Body Mass Index 42.91 02/24/2023 1:42 PM EDT Plan of Treatment Not on file Medical Devices Implanted Type Area Sales Representative Raw Fibers Device Identifier Shelf Expiration Date Model / Serial / Lot Chg Shell R3 3 Hole Acet 52mm - [id number] Implanted:Qty: 1 on 01/06/2023 by Kasia Chaudhary MD at [facility] Left: Hip [employer]-[id number] 08/18/2032 [id number] / / [id number] Liner Or3o Dual Mbility 40 52 - [id number] Implanted:Qty: 1 on 01/06/2023 by Kasia Chaudhary MD at [facility] Left: Hip [employer]-[id number] 06/23/2032 [id number] / / [id number] Chg Screw Ref Spher Head 20mm - [id number] Implanted:Qty: 1 on 01/06/2023 by Kasia Chaudhary MD at [facility] Left: Hip [employer]-[id number] 06/01/2032 [id number] / / [id number] Chg Screw Ref Spher Head 35mm - [id number] Implanted:Qty: 1 on 01/06/2023 by Kasia Chaudhary MD at [facility] Left: Hip [employer]-[id number] 07/25/2032 [id number] / / [id number] Chg Stem Syn Por Plus Jansen Ho Sz - [id number] Implanted:Qty: 1 on 01/06/2023 by Kasia Chaudhary MD at [facility] Left: Hip [employer]-[id number] 03/14/2032 [id number] / / [id number] Liner Or3o Dual Mbility Xlpe 28/40 - [id number] Implanted:Qty: 1 on 01/06/2023 by Kasia Chaudhary MD at [facility] Left: Hip [employer]-[id number] 05/28/2032 [id number] / / [id number] Chg Head Oxinium Fem 09/24 28m - [id number] Implanted:Qty: 1 on 01/06/2023 by Kasia Chaudhary MD at [facility] Left: Hip [employer]-[id number] 07/05/2032 [id number] / / [id number] [place] Ultra Twinfix 4.5 - [id number] Implanted:Qty: 1 on 01/06/2023 by Kasia Chaudhary MD at [facility] Left: Hip [employer] [facility] ([employer])-[id number] 01/27/2027 [id number] / / [id number] Procedures Procedure Name Priority Date/Time Associated Diagnosis Comments XR PELVIS 1 OR 2 VIEWS Routine 02/24/2023 1:25 PM EDT Postoperative examination BASIC METABOLIC PANEL, PLASMA Routine 01/07/2023 3:22 AM EDT CBC W/O DIFFERENTIAL Routine 01/07/2023 3:22 AM EDT NON-INVASIVE VENTILATION Routine 01/06/2023 4:00 PM EDT XR HIP LEFT 2 OR 3 VIEWS STAT 01/06/2023 10:41 AM EDT SURGICAL PATHOLOGY EXAM Routine 01/06/2023 9:42 AM EDT Class 3 severe obesity due to excess calories with body mass index (BMI) of 40.0 to 44.9 in adult, unspecified whether serious comorbidity present ([facility]) Osteoarthritis of left hip FL LESS THAN 1 HOUR (NON-REPORTABLE) Routine 01/06/2023 9:37 AM EDT PB ANESTHESIA PLACEHOLDER Routine 01/06/2023 7:37 AM EDT CO AN ELECTIVE ENDOTRACHEAL AIRWAY Routine 01/06/2023 7:37 AM EDT TYPE AND SCREEN Routine 01/06/2023 7:25 AM EDT CO TOTAL HIP ARTHROPLASTY 01/06/2023 7:14 AM EDT Class 3 severe obesity due to excess calories with body mass index (BMI) of 40.0 to 44.9 in adult, unspecified whether serious comorbidity present (CMS/HCC) Osteoarthritis of left hip CBC W/O DIFFERENTIAL Routine 12/25/2022 11:41 AM EDT Class 3 severe obesity due to excess calories with body mass index (BMI) of 40.0 to 44.9 in adult, unspecified whether serious comorbidity present (CMS/HCC) Osteoarthritis of left hip BASIC METABOLIC PANEL, PLASMA Routine 12/25/2022 11:41 AM EDT Class 3 severe obesity due to excess calories with body mass index (BMI) of 40.0 to 44.9 in adult, unspecified whether serious comorbidity present (CMS/HCC) Osteoarthritis of left hip ALBUMIN, PLASMA Routine 12/25/2022 11:41 AM EDT Class 3 severe obesity due to excess calories with body mass index (BMI) of 40.0 to 44.9 in adult, unspecified whether serious comorbidity present (CMS/HCC) Osteoarthritis of left hip HEMOGLOBIN A1C Routine 12/25/2022 11:41 AM EDT Class 3 severe obesity due to excess calories with body mass index (BMI) of 40.0 to 44.9 in adult, unspecified whether serious comorbidity present (CMS/HCC) Osteoarthritis of left hip NICOTINE AND COTININE METABOLITE, SERUM, QUANTITATIVE Routine 12/25/2022 11:41 AM EDT Class 3 severe obesity due to excess calories with body mass index (BMI) of 40.0 to 44.9 in adult, unspecified whether serious comorbidity present (CMS/HCC) Osteoarthritis of left hip ECG ADULT Routine 12/25/2022 10:55 AM EDT Hypertension, unspecified type XR LUMBAR SPINE 2 OR 3 VIEWS Routine 11/25/2022 1:31 PM EST Osteoarthritis of left hip XR HIP LEFT 1 VIEW Routine 11/25/2022 12 :06 PM EST Hip pain, left Results * 6-Week Post-Op: XR Pelvis (AP Standing) (02/24/2023 1:25 PM EDT) Anatomical Region Laterality Modality Body, Pelvis Digital Radiogra phy Impressions 02/24/2023 3:28 PM EDT Bilateral total hip prostheses without unexpected finding. CRITICAL RESULT: No. COMMUNICATION: Per this written report. Drafted by Jean-Pierre Hayward MD on 02/24/2023 3:28 PM Final report signed by Jean-Pierre Hayward MD on 02/24/2023 3:28 PM Narrative 02/24/2023 3:28 PM EDT CLINICAL INDICATION: Pain. TECHNIQUE: XR PELVIS 1 OR 2 VIEWS COMPARISON: 12/29/2022. FINDINGS: Bilateral total hip prostheses. Interval resolution of postsurgical changes from left total hip arthroplasty. Moderate pubic symphyseal degenerative changes. Mild bilateral sacral iliac joint arthritis. Lower lumbar spine degenerative disc disease and facet arthropathy is moderately developed. No radiopaque foreign body is seen. Procedure Note Jean-Pierre Hayward MD - 02/24/2023 CLINICAL INDICATION: Pain. TECHNIQUE: XR PELVIS 1 OR 2 VIEWS COMPARISON: 12/29/2022. FINDINGS: Bilateral total hip prostheses. Interval resolution of postsurgicalchanges from left total hip arthroplasty. Moderate pubic symphysealdegenerative changes. Mild bilateral sacral iliac joint arthritis. Lowerlumbar spine degenerative disc disease and facet arthropathy is moderatelydeveloped. No radiopaque foreign body is seen. IMPRESSION: Bilateral total hip prostheses without unexpected finding. CRITICAL RESULT: No. COMMUNICATION: Per this written report. Drafted by Jean-Pierre Hayward MD on 02/24/2023 3:28 PM Final report signed by Jean-Pierre Hayward MD on 02/24/2023 3:28 PM Kasia Chaudhary MD IMG XR PROCEDURES Final Result * (ABNORMAL) CBC (01/07/2023 3:22 AM EDT) Only the most recent of2 resultswithin the time period is included. WBC Count 16.42(H) 3.70 - 10.30 10*3/uL LAB HEMATOLOGY METHOD 01/07/2023 3:30 AM EDT [facility] RBC Count 3.59(L) 3.90 - 5.20 10*6/uL LAB HEMATOLOGY METHOD 01/07/2023 3:30 AM EDT [facility] HGB 10.8(L) 11.2 - 15.7 g/dL LAB HEMATOLOGY METHOD 01/07/2023 3:30 AM EDT [facility] HCT 33.4(L) 34.0 - 45.0 % LAB HEMATOLOGY METHOD 01/07/2023 3:30 AM EDT [facility] Platelet Count 253 155 - 369 10*3/uL LAB HEMATOLOGY METHOD 01/07/2023 3:30 AM EDT [facility] MCV 93 79 - 98 fL LAB HEMATOLOGY METHOD 01/07/2023 3:30 AM EDT [facility] MCH 30.1 26.0 - 32.0 pg LAB HEMATOLOGY METHOD 01/07/2023 3:30 AM EDT [facility] MCHC 32.3 30.7 - 35.5 g/dL LAB HEMATOLOGY METHOD 01/07/2023 3:30 AM EDT [facility] RDW 14.6(H) 11.5 - 14.5 % LAB HEMATOLOGY METHOD 01/07/2023 3:30 AM EDT [facility] MPV 11.1 8.8 - 12.5 fL LAB HEMATOLOGY METHOD 01/07/2023 3:30 AM EDT [facility] nRBC 0.0 <=0.0 per 100 WBCs LAB HEMATOLOGY METHOD 01/07/2023 3:30 AM EDT [facility] Blood Venous blood specimen / Unknown Venipuncture / Unknown 01/07/2023 3:22 AM EDT 01/07/2023 3:28 AM EDT us Divya Fontaine ASSOCIATE CONSULTING ENGINEER LAB BLOOD ORDERABLES Final Re sult [facility] [address] [place] [address] * (ABNORMAL) Basic metabolic panel (01/07/2023 3:22 AM EDT) Only the most recent of2 resultswithin the time period is included. [facility] [address] Glucose, Plasma 138(H) 74 - 99 mg/dL 01/07/2023 3:48 AM EDT [facility] BUN, Plasma 23 8 - 23 mg/dL 01/07/2023 3:48 AM EDT [facility] Creatinine, Plasma 1.23(H) 0.60 - 1.10 mg/dL 01/07/2023 3:48 AM EDT [facility] BUN/Creatinine Ratio 19 01/07/2023 3:48 AM EDT [facility] Sodium, Plasma 138 136 - 145 mmol/L 01/07/2023 3:48 AM EDT [facility] Potassium, Plasma 4.4 3.7 - 4.8 mmol/L 01/07/2023 3:48 AM EDT [facility] Chloride, Plasma 104 97 - 107 mmol/L 01/07/2023 3:48 AM EDT [facility] CO2, Plasma 25 22 - 29 mmol/L 01/07/2023 3:48 AM EDT [facility] Anion Gap 9 6 - 16 mmol/L 01/07/2023 3:48 AM EDT [facility] Total Calcium, Plasma 8.4(L) 8.9 - 10.2 mg/dL 01/07/2023 3:48 AM EDT [facility] eGFRcr 46.8 mL/min/1.7 3m*2 01/07/2023 3:48 AM EDT [facility] Comment: Reported eGFRcr in mL/min/1.73m2 is based the CKD-EPI 2021 equation that does not use a race coefficient. Effective 05/07/22 our laboratory changed the eGFR calculation to the CKD-EPI 2021 equation from the previously reported eGFR, based on the MDRD equation. For comparisons between the two equations, please see laboratory website: [email or web address] Blood Venous blood specimen / Unknown Venipuncture / Unknown 01/07/2023 3:22 AM EDT 01/07/2023 3:27 AM EDT us Divya Fontaine APRN LAB BLOOD ORDERABLES Final Re sult [facility] [address] [place] [address] * XR Hip Left 2 or 3 Views (01/06/2023 10:41 AM EDT) Anatomical Region Laterality Modality Lower Extremities, Hip Left Digital R adiography Impressions 01/06/2023 10:49 AM EDT Expected postsurgical changes from left total hip arthroplasty. CRITICAL RESULT: No. COMMUNICATION: Per this written report. Dictated by Jean-Pierre Hayward MD on 01/06/2023 10:49 AM Signed by Jean-Pierre Hayward MD on 01/06/2023 10:49 AM Narrative 01/06/2023 10:49 AM EDT Exam/Procedure: XR HIP LEFT 2 OR 3 VIEWS ordered by DIVYA FONTAINE [id number] CLINICAL INDICATION: Left hip pain. TECHNIQUE: XR HIP LEFT 2 OR 3 VIEWS COMPARISON: 11/25/2022. FINDINGS: Bilateral total hip prostheses. Expected postsurgical changes from left total hip arthroplasty. Moderate pubic symphyseal degenerative changes. Mild bilateral sacral iliac joint arthritis. Lower lumbar spine degenerative disc disease and facet arthropathy is moderately developed. No radiopaque foreign body is seen. Wound vacuum is present. Procedure Note Jean-Pierre Hayward MD - 01/06/2023 Exam/Procedure: XR HIP LEFT 2 OR 3 VIEWS ordered by DIVYA FONTAINE,[id number] CLINICAL INDICATION: Left hip pain. TECHNIQUE: XR HIP LEFT 2 OR 3 VIEWS COMPARISON: 11/25/2022. FINDINGS: Bilateral total hip prostheses. Expected postsurgical changes from lefttotal hip arthroplasty. Moderate pubic symphyseal degenerative changes.Mild bilateral sacral iliac joint arthritis. Lower lumbar spinedegenerative disc disease and facet arthropathy is moderately developed.No radiopaque foreign body is seen. Wound vacuum is present. IMPRESSION: Expected postsurgical changes from left total hip arthroplasty. CRITICAL RESULT: No. COMMUNICATION: Per this written report. Dictated by Jean-Pierre Hayward MD on 01/06/2023 10:49 AM Signed by Jean-Pierre Hayward MD on 01/06/2023 10:49 AM us Divya Fontaine ASSOCIATE CONSULTING ENGINEER IMG XR PROCEDURES Final Resul t * Surgical Pathology Exam (01/06/2023 9:42 AM EDT) Case Report Surgical Pathology Case: [id number] Authorizing Provider: Kasia Chaudhary MD Collected: 01/06/2023 0942 Ordering Location: [facility] Operating Room Received: 01/06/2023 1042 Pathologist: Marley foote MD Specimen: Hip, Left, Left Femoral Head - gross only 01/06/2023 2:43 PM EDT [facility] Final Diagnosis A. Left femoral head, gross diagnosis only: - findings compatible with osteoarthritis , gross diagnosis only. 01/06/2023 2:43 PM EDT [facility] at 1443 EDT Clinical Information Class 3 severe obesity due to excess calories with body mass index (BMI) of 40.0 to 44.9 in adult, unspecified whether serious comorbidity present (CMS/HCC) [E66.01, Z68.41] Osteoarthritis of left hip [M16.12] 01/06/2023 2:43 PM EDT [facility] Gross Description A. LEFT FEMORAL HEAD - GROSS ONLY The specimen is received fresh placed in formalin labeled left femoral head , and consists of the aforementioned , measuring 4.4 cm in diameter. The articular surface is roughened with areas of eburnation and osteophyte formation. There is no evidence of fracture. The cut surface is yellow-porous and hemorrhagic. Gross photographs are taken. The specimen was submitted for gross diagnosis only. Renee Mayo 01/06/2023 2:43 PM EDT [facility] Bone Left hip region structure / Unknown 01/06/2023 9:42 AM EDT 01/06/2023 10:42 AM EDT Comment:Pre-op diagnosis: Class 3 severe obesity due to excess calories with body mass index (BMI) of 40.0 to 44.9 in adult, unspecified whether serious comorbidity present (CMS/HCC) [E66.01, Z68.41] Osteoarthritis of left hip [M16.12] Kasia Chaudhary MD LAB PATHOLOGY ORDERABLES Final Result [facility] [address] [place] [address] * FL Less than 1 Hour Intraoperative (01/06/2023 9:37 AM EDT) Narrative IMAGING - 01/06/2023 9:37 AM EDT Images were obtained for surgical purposes. See Kasia Chaudhary's surgical note in the patient's chart for the findings. Kasia Chaudhary MD IMG FLUOROSCOPY PROCEDURES Jahaira l Result IMAGING * CO AN ELECTIVE ENDOTRACHEAL AIRWAY, PB ANESTHESIA PLACEHOLDER (01/06/2023 7:37 AM EDT) Narrative Ramez Felix CRNA - 01/06/2023 7:37 AM EDT Ramez Felix CRNA 01/06/2023 8:07 AM Airway Date/Time: 01/06/2023 7:37 AM Urgency: elective Airway not difficult General Information and Staff Patient location during procedure: OR SLEEP SCIENTIST: Ramez Felix CRNA Performed: SLEEP SCIENTIST Indications and Patient Condition Indications for airway management: anesthesia Spontaneous Ventilation: absent Preoxygenated: yes Patient position: sniffing Mask difficulty assessment: 1 - vent by mask Final Airway Details Final airway type: endotracheal airway Successful airway: ETT Cuffed: yes Successful intubation technique: direct laryngoscopy Endotracheal tube insertion site: oral Blade: Saranya Blade size: #3 ETT size (mm): 7.0 Cormack-Lehane Classification: grade I - full view of glottis Placement verified by: chest auscultation and capnometry Cuff volume (mL): 5 Measured from: teeth Number of attempts at approach: 1 Additional Comments Atraumatic. No change to dentition. Liam Hodgson MD ANESTHESIA ORDERABLES Final Re sult * Type and Screen (01/06/2023 7:25 AM EDT) ABO/Rh O Positive 01/06/2023 6:43 AM EDT BLOOD BANK Antibody Screen Negative 01/06/2023 6:43 AM EDT [facility]LO[facility] BANK Specimen Expiration 01/09/2023 23:59 01/06/2023 6:43 AM EDT BLOOD BANK Blood Venous blood specimen / Unknown Venipuncture / Unknown 01/06/2023 7:25 AM EDT 01/06/2023 7:40 AM EDT Liam Hodgson MD LAB BLOOD BANK TEST ORDERABLES Final Result Performing Organization Address City/[facility]/ZIP Co de Phone Number BLOOD BANK [address] [place] [address], * Nicotine Cotinine Metabolite (12/25/2022 11:41 AM EDT) Nicotine, S/P, Quant <5 ng/mL 12/28/2022 5:54 PM EDT [facility] ([facility]) Cotinine, S/P, Quant <5 ng/mL 12/28/2022 5:54 PM EDT [facility] ([facility]) Blood Venous blood specimen / Unknown Venipuncture / Unknown 12/25/2022 11:41 AM EDT 12/25/2022 11:41 AM EDT Narrative [facility] ([facility]) - 12/28/2022 5:54 PM EDT Consistent with abstinence from nicotine-containing products for at least 1 week. INTERPRETIVE INFORMATION: Nicotine and Metabolites, Serum or Plasma, Quantitative Methodology: Quantitative Liquid Chromatography-Tandem Mass Spectrometry Positive cutoff: 5 ng/mL For medical purposes only; not valid for forensic use. This test is designed to evaluate recent use of nicotine-containing products. Passive and active exposure cannot be discriminated definitively, although a cutoff of 10 ng/mL cotinine is frequently used for surgery qualification purposes. For smoking cessation programs or compliance testing, the absence of expected drug(s) and/or drug metabolite(s) may indicate non-compliance, inappropriate timing of specimen collection relative to drug administration, poor drug absorption, or limitations of testing. This test cannot distinguish between use of tobacco and purified nicotine products. The concentration value must be greater than or equal to the cutoff to be reported as positive. This test was developed and its performance characteristics determined by [employer]. It has not been cleared or approved by the [place] Food and Drug Administration. This test was performed in a CLIA certified laboratory and is intended for clinical purposes. Performed By: [employer] [address] [place] [address] Awning Assembler: Zoltan Berg MD, PhD Kasia Chaudhary MD LAB BLOOD ORDERABLES Final Resu lt Performing Organization Address City/[facility]/ZIP Co de Phone Number [facility] [email or web address]) [address] [place] [address] * (ABNORMAL) Hemoglobin A1c (12/25/2022 11:41 AM EDT) Hemoglobin A1c 6.1(H) <5.7 % 12/25/2022 4:31 PM EDT [facility] Blood Venous blood specimen / Unknown Venipuncture / Unknown 12/25/2022 11:41 AM EDT 12/25/2022 11:41 AM EDT Narrative [facility] - 12/25/2022 4:31 PM EDT HA1C Interpretive Data: Diagnosis of Diabetes: Diabetic > or = 6.5% Pre-diabetic 5.7 to 6.4% Non-diabetic < or = 5.6% Glycemic Targets for Type I and Type II Diabetics: Non- Adults <7.0% Adults <6.0% Children and Adolescents <7.5% Source: [place] [employer]. Standards of medical care in diabetes,2017. Diabetes Care.2017:40 (suppl 1):S1-S135. HbA1c assay performed by an ion-exchange chromatography method that is certified traceable to the DCCT. Kasia Chaudhary MD LAB BLOOD ORDERABLES Final Resu lt Performing Organization Address City/[facility]/ZIP Co de Phone Number [facility] [address] [place] [address] * Albumin, Plasma (12/25/2022 11:41 AM EDT) Albumin, Plasma 4.0 3.5 - 5.2 g/dL 12/25/2022 2:46 PM EDT [facility] Blood Venous blood specimen / Unknown Venipuncture / Unknown 12/25/2022 11:41 AM EDT 12/25/2022 11:41 AM EDT Kasia Chaudhary MD LAB BLOOD ORDERABLES Final Resu lt [facility] [address] [place] [address] * XR Lumbar Spine 2 or 3 Views (11/25/2022 1:31 PM EST) Anatomical Region Laterality Modality Spine, L-spine Digital Radiogra phy Impressions 11/25/2022 1:42 PM EST No dynamic instability between CT dated and standing lateral radiographs. CRITICAL RESULT: No. COMMUNICATION: Per this written report. Dictated by Jean-Pierre Hayward MD on 11/25/2022 1:41 PM Signed by Jean-Pierre Hayward MD on 11/25/2022 1:42 PM Narrative 11/25/2022 1:42 PM EST Exam/Procedure: XR LUMBAR SPINE 2 OR 3 VIEWS ordered by KASIA CHAUDHARY, [id number] CLINICAL INDICATION: Lumbar spine pain. TECHNIQUE: XR LUMBAR SPINE 2 OR 3 VIEWS COMPARISON: None. FINDINGS: Vascular calcifications are present. Hip prosthesis is seen. Moderate to severe L1 to, L3-4, L4-5, and L5-S1 discogenic disease and facet arthropathy. Mild L2-3 discogenic disease and facet arthropathy. Right upper quadrant surgical clips are present. No fracture or dislocation. Procedure Note Jean-Pierre Hayward MD - 11/25/2022 Exam/Procedure: XR LUMBAR SPINE 2 OR 3 VIEWS ordered by KASIA CHAUDHARY,[id number] CLINICAL INDICATION: Lumbar spine pain. TECHNIQUE: XR LUMBAR SPINE 2 OR 3 VIEWS COMPARISON: None. FINDINGS: Vascular calcifications are present. Hip prosthesis is seen. Moderate tosevere L1 to, L3-4, L4-5, and L5-S1 discogenic disease and facetarthropathy. Mild L2-3 discogenic disease and facet arthropathy. Rightupper quadrant surgical clips are present. No fracture or dislocation. IMPRESSION: No dynamic instability between CT dated and standing lateralradiographs. CRITICAL RESULT: No. COMMUNICATION: Per this written report. Dictated by Jean-Pierre Hayward MD on 11/25/2022 1:41 PM Signed by Jean-Pierre Hayward MD on 11/25/2022 1:42 PM Kasia Chaudhary MD IMG XR PROCEDURES Final Result * XR Hip Left 1 View (11/25/2022 12:06 PM EST) Anatomical Region Laterality Modality Lower Extremities, Hip Left Digital R adiography Impressions 11/25/2022 1:38 PM EST Degenerative changes as described above. CRITICAL RESULT: No. COMMUNICATION: Per this written report. Dictated by Ange Alvarez MD on 11/25/2022 1:36 PM Signed by Ange Alvarez MD on 11/25/2022 1:38 PM Narrative 11/25/2022 1:38 PM EST Exam/Procedure: XR HIP LEFT 1 VIEW ordered by KASIA CHAUDHARY, [id number] CLINICAL INDICATION: left hip pain TECHNIQUE: XR HIP LEFT 1 VIEW COMPARISON: None. FINDINGS: Status post right hip hemiarthroplasty, incompletely evaluated. Moderate degenerative changes of the left hip. No acute fracture or dislocation of the left hip. Procedure Note Ange Alvarez MD - 11/25/2022 Exam/Procedure: XR HIP LEFT 1 VIEW ordered by KASIA CHAUDHARY, [id number] CLINICAL INDICATION: left hip pain TECHNIQUE: XR HIP LEFT 1 VIEW COMPARISON: None. FINDINGS: Status post right hip hemiarthroplasty, incompletely evaluated. Moderatedegenerative changes of the left hip. No acute fracture or dislocation ofthe left hip. IMPRESSION: Degenerative changes as described above. CRITICAL RESULT: No. COMMUNICATION: Per this written report. Dictated by Ange Alvarez MD on 11/25/2022 1:36 PM Signed by Ange Alvarez MD on 11/25/2022 1:38 PM Kasia Chaudhary MD IMG XR PROCEDURES Final Result Visit Diagnoses Diagnosis Start Date Osteoarthritis of left hip 11/25/2022 Hip pain, left Pain in joint, pelvic region and thigh 11/25/2022 Class 3 severe obesity due to excess calories with body mass index (BMI) of 40.0 to 44.9 in adult, unspecified whether serious comorbidity present 11/25/2022 Osteoarthritis of left hip 11/25/2022 Hypertension, unspecified type 12/25/2022 Osteoarthritis of left hip, unspecified osteoarthritis type 12/25/2022 Class 3 severe obesity due to excess calories with body mass index (BMI) of 40.0 to 44.9 in adult, unspecified whether serious comorbidity present 01/06/2023 Osteoarthritis of left hip 01/06/2023 Class 3 severe obesity due to excess calories with body mass index (BMI) of 40.0 to 44.9 in adult, unspecified whether serious comorbidity present 01/06/2023 Primary osteoarthritis of left hip 01/06/2023 S/P total left hip arthroplasty 01/20/2023 Postoperative examination Follow-up examination, following unspecified surgery 02/24/2023 Postoperative examination Follow-up examination, following unspecified surgery 02/24/2023 Aftercare following left hip joint replacement surgery 02/24/2023 Class 3 severe obesity due to excess calories with body mass index (BMI) of 40.0 to 44.9 in adult 01/06/2023 Primary osteoarthritis of left hip 01/06/2023 Care Teams Restaurant Assistant Relationship Specialty Start Date End Date Neftaly Gloria MD [address] [place] [address] PCP - General 02/22/21
== END 2025-06-05 23:59 | disposition home or self-care (01) ==
LOC: RAD 09:11
PROVIDERS: Visit Provider Physician Assistant Surgical
DX: M79.642 Pain in left hand (principal)
CPT/HCPCS: 73130

== ENCOUNTER 2025-06-16 09:58 | Outpatient (CLI) | payer MEDICARE, MEDICAID, SELFPAY ==
[2025-06-16 08:09] VITALS: BMI 44.0
--- OUTSIDE RECORDS SUMMARY | 2025-06-16 10:02 | XMS_ITS | Continuity of Care Document ---
Author Organization Healthcare Address [address] [place] [address] Care Team Providers Care Boat Carpenter Mechanic Name Role Phone Neftaly Gloria MD Primary Care Provider [phone] Encounters Date Type Department Care Team Description 02/24/2023 1:14 PM EDT - 02/24/2023 11:59 PM EDT Hospital Encounter [facility] Building Radiology [address] [place] [address] Postoperative examination Discharge Disposition: Home or Self Care 02/24/2023 Travel 02/24/2023 1:40 PM EDT Office Visit Medical Office Building [facility] [address] [facility], [address] [place] [address] Kasia Chaudhary MD Postoperative examination (Primary Dx); Aftercare following left hip joint replacement surgery 01/20/2023 Travel 01/20/2023 1:00 PM EDT Office Visit Medical Office Building [facility] [address] [facility], [address] [place] [address] Kasia Chaudhary MD S/P total left hip arthroplasty (Primary Dx) 01/12/2023 Telephone Medical Office Building [facility] [address] [facility], [address] [place] [address] Kasia Chaudhary MD HCN - Patient Message 01/06/2023 5:24 AM EDT - 01/07/2023 5:30 PM EDT Hospital Encounter [facility] Inpatient [address] [place] [address] Kasia Chaudhary MD Primary osteoarthritis of left hip (Primary Dx); Class 3 severe obesity due to excess calories with body mass index (BMI) of 40.0 to 44.9 in adult, unspecified whether serious comorbidity present (CMS/HCC); Osteoarthritis of left hip Discharge Disposition: Home or Self Care 01/06/2023 Travel 01/06/2023 7:30 AM EDT - 01/06/2023 10:40 AM EDT Surgery [facility] S Operating Room [address] [place] [address] Kasia Chaudhary MD ARTHROPLASTY, HIP, TOTAL [[id number] (CPT )] 01/06/2023 7:25 AM EDT Anesthesia Event [facility] S Operating Room [address] [place] [address] Liam Hodgson MD Tesar, Stephanie P, KATHY 12/25/2022 Travel 12/25/2022 11:00 AM EDT Pre-Admission Testing [facility] S Anesthesia [address] [place] [address] Hypertension, unspecified type (Primary Dx); Osteoarthritis of left hip, unspecified osteoarthritis type 11/25/2022 1:00 PM EST - 11/25/2022 11:59 PM EST Hospital Encounter Medical Office Building Radiology [address] [place] [address] Osteoarthritis of left hip Discharge Disposition: Home or Self Care 11/25/2022 11:50 AM EST - 11/25/2022 12:59 PM EST Hospital Encounter Medical Office Building Radiology [address] [place] [address] Hip pain, left Discharge Disposition: Home or Self Care 11/25/2022 Travel 11/25/2022 12:20 PM EST Office Visit Medical Office Building Surgery [facility] [address] [facility], [address] [place] [address] Kasia Chaudhary MD Osteoarthritis of left hip (Primary Dx); Class 3 severe obesity due to excess calories with body mass index (BMI) of 40.0 to 44.9 in adult, unspecified whether serious comorbidity present (CMS/HCC) 09/01/2016 [facility] Vitals Encounter [facility] OUTPATIENT CONVERSIONS [address] [place] [address] Provider, Historical 11/12/2015 [facility] Vitals Encounter [facility] OUTPATIENT CONVERSIONS [address] [place] [address] Provider, Historical 04/16/2015 [facility] Vitals Encounter [facility] OUTPATIENT CONVERSIONS [address] [place] [address] Provider, Historical Allergies No known active allergies [...] Other Social History Smoking Status as of 06/16/2025 Tobacco Use Types Packs/Day Years Used Date [...] drink first t luis in the morning (EYE-MUSIC RESEARCHER) to steady your nerves or to get [...] on file Medical Devices Implanted Type Area Bath House Attendant Device Identifier Shelf Expiration Date Model / Serial / Lot Chg Shell R3 3 Hole Acet 52mm - [id number] Implanted:Qty: 1 on 01/06/2023 by Kasia Chaudhary MD at [facility] Left: Hip [employer]-[id number] 08/18/2032 [id number] / / [id number] Liner Or3o Dual Mbility 40 52 - [id number] Implanted:Qty: 1 on 01/06/2023 by Kasia Chaudhary MD at [facility] Left: Hip [employer]-[id number] 06/23/2032 [id number] / / [id number] Chg Screw Ref Spher Head 20mm - [id number] Implanted:Qty: 1 on 01/06/2023 by Kasia Chaudhary MD at [facility] Left: Hip [employer]-[id number] 06/01/2032 [id number] / / [id number] Chg Screw Ref Spher Head 35mm - [id number] Implanted:Qty: 1 on 01/06/2023 by Kasia Chaudhary MD at [facility] Left: Hip [employer]-[id number] 07/25/2032 [id number] / / [id number] Chg Stem Syn Por Plus Jansen Ho Sz - [id number] Implanted:Qty: 1 on 01/06/2023 by Kasia Chaudhary MD at [facility] Left: Hip [employer]-[id number] 03/14/2032 [id number] / / [id number] Liner Or3o Dual Mbility Xlpe 28/40 - [id number] Implanted:Qty: 1 on 01/06/2023 by Kasia Chaudhary MD at [facility] Left: Hip [employer]-[id number] 05/28/2032 [id number] / / [id number] Chg Head Oxinium Fem 09/24 28m - [id number] Implanted:Qty: 1 on 01/06/2023 by Kasia Chaudhary MD at [facility] Left: Hip [employer]-[id number] 07/05/2032 [id number] / / [id number] [place] Ultra [employer]infix 4.5 - [id number] Implanted:Qty: 1 on 01/06/2023 by Kasia Chaudhary MD at [facility] Left: Hip [employer] [facility] ([employer])-[id number] 01/27/2027 [id number] / / [id number] Procedures Procedure Name Priority Date/Time Associated Diagnosis [...] in adult, unspecified whether serious comorbidity present ([facility]) Osteoarthritis of left hip FL LESS THAN 1 HOUR (NON-REPORTABLE) Routine 01/06/2023 9:37 AM EDT PB ANESTHESIA PLACEHOLDER Routine 01/06/2023 7:37 AM EDT RI AN ELECTIVE ENDOTRACHEAL AIRWAY Routine 01/06/2023 7:37 AM EDT TYPE AND SCREEN Routine 01/06/2023 7:25 AM EDT RI TOTAL HIP ARTHROPLASTY 01/06/2023 7:14 AM EDT [...] LAB HEMATOLOGY METHOD 01/07/2023 3:30 AM EDT [employer] [facility] RBC Count 3.59(L) 3.90 - 5.20 10*6/uL LAB HEMATOLOGY METHOD 01/07/2023 3:30 AM EDT [facility] HGB 10.8(L) 11.2 - 15.7 g/dL LAB HEMATOLOGY METHOD 01/07/2023 3:30 AM EDT [facility] HCT 33.4(L) 34.0 - 45.0 % LAB HEMATOLOGY METHOD 01/07/2023 3:30 AM EDT [facility] Platelet Count 253 155 - 369 10*3/uL LAB HEMATOLOGY METHOD 01/07/2023 3:30 AM EDT [facility] MCV 93 79 - 98 fL LAB HEMATOLOGY METHOD 01/07/2023 3:30 AM EDT [facility] MCH 30.1 26.0 - 32.0 pg LAB HEMATOLOGY METHOD 01/07/2023 3:30 AM EDT [facility] MCHC 32.3 30.7 - 35.5 g/dL LAB HEMATOLOGY METHOD 01/07/2023 3:30 AM EDT [facility] RDW 14.6(H) 11.5 - 14.5 % LAB HEMATOLOGY METHOD 01/07/2023 3:30 AM EDT [facility] MPV 11.1 8.8 - 12.5 fL LAB HEMATOLOGY METHOD 01/07/2023 3:30 AM EDT [facility] nRBC 0.0 <=0.0 per 100 WBCs LAB HEMATOLOGY METHOD 01/07/2023 3:30 AM EDT [facility] Blood Venous blood specimen / Unknown Venipuncture / Unknown 01/07/2023 3:22 AM EDT 01/07/2023 3:28 AM EDT us Divya Fontaine DISABILITY SPECIALIST LAB BLOOD ORDERABLES Final Re sult [facility] [address] [place] [address] * (ABNORMAL) Basic metabolic panel (01/07/2023 3:22 AM EDT) Only the most recent of2 resultswithin the time period is included. [facility] Glucose, Plasma 138(H) 74 - 99 mg/dL 01/07/2023 3:48 AM EDT [facility] BUN, Plasma 23 8 - 23 mg/dL 01/07/2023 3:48 AM EDT [facility] Creatinine, Plasma 1.23(H) 0.60 - 1.10 mg/dL 01/07/2023 3:48 AM EDT [facility] BUN/Creatinine Ratio 19 01/07/2023 3:48 AM EDT [facility] Sodium, Plasma 138 136 - 145 mmol/L 01/07/2023 3:48 AM EDT [facility] Potassium, Plasma 4.4 3.7 - 4.8 mmol/L 01/07/2023 3:48 AM EDT [facility] Chloride, Plasma 104 97 - 107 mmol/L 01/07/2023 3:48 AM EDT [facility] CO2, Plasma 25 22 - 29 mmol/L 01/07/2023 3:48 AM EDT [facility] Anion Gap 9 6 - 16 mmol/L 01/07/2023 3:48 AM EDT [facility] Total Calcium, Plasma 8.4(L) 8.9 - 10.2 mg/dL 01/07/2023 3:48 AM EDT [facility] eGFRcr 46.8 mL/min/1.7 3m*2 01/07/2023 3:48 AM EDT [facility] Comment: Reported eGFRcr in mL/min/1.73m2 is based the CKD-EPI 2021 equation that does not use a race coefficient. Effective 05/07/22 our laboratory changed the eGFR calculation to the CKD-EPI 2021 equation from the previously reported eGFR, based on the MDRD equation. For comparisons between the two equations, please see laboratory website: [email or web address] Blood Venous blood specimen / Unknown Venipuncture / Unknown 01/07/2023 3:22 AM EDT 01/07/2023 3:27 AM EDT us Divya Fontaine APRN LAB BLOOD ORDERABLES Final Re sult [facility] [address] [place] [address] * XR Hip Left 2 or 3 [...] OR 3 VIEWS ordered by DIVYA FONTAINE [id number] CLINICAL INDICATION: Left hip pain. TECHNIQUE: XR [...] 2 OR 3 VIEWS ordered by DIVYA FONTAINE,[id number] CLINICAL INDICATION: Left hip pain. TECHNIQUE: XR [...] on 01/06/2023 10:49 AM us Divya Fontaine DISABILITY SPECIALIST IMG XR PROCEDURES Final Resul t * Surgical Pathology Exam (01/06/2023 9:42 AM EDT) Case Report Surgical Pathology Case: [id number] Authorizing Provider: Kasia Chaudhary MD Collected: 01/06/2023 0942 Ordering Location: [facility] Operating Room Received: 01/06/2023 1042 Pathologist: Marley [...] PATHOLOGY ORDERABLES Final Result [facility] [address] [place] [address] * FL Less than 1 Hour Intraoperative (01/06/2023 9:37 AM EDT) Narrative IMAGING - 01/06/2023 9:37 AM EDT Images were obtained for surgical purposes. See Kasia Chaudhary's surgical note in the patient's chart for the findings. Kasia Chaudhary MD IMG FLUOROSCOPY PROCEDURES Jahaira l Result IMAGING * RI AN ELECTIVE ENDOTRACHEAL AIRWAY, PB ANESTHESIA PLACEHOLDER (01/06/2023 7:37 AM EDT) Narrative Ramez Felix CRNA - 01/06/2023 7:37 AM EDT Ramez Felix CRNA 01/06/2023 8:07 AM Airway Date/Time: 01/06/2023 7:37 AM Urgency: elective Airway not difficult General Information and Staff Patient location during procedure: OR FLIGHT LINE MECHANIC: Ramez Felix CRNA Performed: FLIGHT LINE MECHANIC Indications and Patient Condition Indications for airway [...] TEST ORDERABLES Final Result Performing Organization Address City/[facility]/ZIP Co de Phone Number BLOOD BANK [address] [place] [address], * Nicotine Cotinine Metabolite (12/25/2022 11:41 AM EDT) Nicotine, S/P, Quant <5 ng/mL 12/28/2022 5:54 PM EDT [facility] ([facility]) Cotinine, S/P, Quant <5 ng/mL 12/28/2022 5:54 PM EDT [facility] ([facility]) Blood Venous blood specimen / Unknown Venipuncture / Unknown 12/25/2022 11:41 AM EDT 12/25/2022 11:41 AM EDT Narrative [facility] ([facility]) - 12/28/2022 5:54 PM EDT Consistent with [...] developed and its performance characteristics determined by [employer]. It has not been cleared or approved by the [place] Food and Drug Administration. This test was performed in a CLIA certified laboratory and is intended for clinical purposes. Performed By: [facility] [address] [place] [address] Catalytic Converter Operator Helper: Zoltan Berg MD, PhD Kasia Chaudhary MD LAB BLOOD ORDERABLES Final Resu lt Performing Organization Address City/[facility]/ZIP Co de Phone Number [facility] [employer]) [address] [place] [address] * (ABNORMAL) Hemoglobin A1c (12/25/2022 11:41 AM [...] Adults <6.0% Children and Adolescents <7.5% Source: [place] [employer]. Standards of medical care in diabetes,2017. Diabetes Care.2017:40 (suppl 1):S1-S135. HbA1c assay performed by an ion-exchange chromatography method that is certified traceable to the DCCT. Kasia Chaudhary MD LAB BLOOD ORDERABLES Final Resu lt Performing Organization Address City/[facility]/ZIP Co de Phone Number [facility] [address] [place] [address] * Albumin, Plasma (12/25/2022 11:41 AM EDT) Albumin, Plasma 4.0 3.5 - 5.2 g/dL 12/25/2022 2:46 PM EDT [facility] Blood Venous blood specimen / Unknown Venipuncture / Unknown 12/25/2022 11:41 AM EDT 12/25/2022 11:41 AM EDT Kasia Chaudhary MD LAB BLOOD ORDERABLES Final Resu lt [facility] [address] [place] [address] * XR Lumbar Spine 2 or 3 [...] OR 3 VIEWS ordered by KASIA CHAUDHARY, [id number] CLINICAL INDICATION: Lumbar spine pain. TECHNIQUE: XR [...] 2 OR 3 VIEWS ordered by KASIA CHAUDHARY,[id number] CLINICAL INDICATION: Lumbar spine pain. TECHNIQUE: XR [...] LEFT 1 VIEW ordered by KASIA CHAUDHARY, [id number] CLINICAL INDICATION: left hip pain TECHNIQUE: XR HIP LEFT 1 VIEW COMPARISON: None. FINDINGS: Status post right hip hemiarthroplasty, incompletely evaluated. Moderate degenerative changes of the left hip. No acute fracture or dislocation of the left hip. Procedure Note Ange Alvarez MD - 11/25/2022 Exam/Procedure: XR HIP LEFT 1 VIEW ordered by KASIA CHAUDHARY, [id number] CLINICAL INDICATION: left hip pain TECHNIQUE: XR [...] osteoarthritis of left hip 01/06/2023 Care Teams Boat Carpenter Mechanic Relationship Specialty Start Date End Date Neftaly Gloria MD [address] [place] [address] PCP - General 02/22/21
--- NOTE | 2025-06-16 10:30 | ECG_ITS ---
APPROVED REPORT Exam: Resting ECG HR:55 bpm ECG Measurements Heart Rate 55 AXES AZ 197 P 59 QRSd 100 QRS 17 QT 431 T 39 QTc 419 Conclusion SINUS BRADYCARDIA BORDERLINE ECG UNCONFIRMED REPORT Electronically signed by : Neftaly Gloria MD 06/19/2025 14:34:28
[2025-06-16 10:39] LABS: Hematocrit 38.2 % (37.0-47.0); Hemoglobin 12.2 g/dL (12.2-16.2); Immature Granulocytes % 0.2 %; Mean Corpuscular HGB Conc 31.9 g/dL (31.8-35.4); Mean Corpuscular Hemoglobin 30.1 pg (27.0-31.2); Mean Corpuscular Volume 94.3 fl (81-99); Nucleated Red Blood Cells % 0 %; Platelet Count 180 K/mm3 (142-424); Red Blood Count 4.05 M/mm3 (4.20-5.40); Red Cell Distribution Width-SD 48.3 fL; White Blood Count 8.3 K/mm3 (4.8-10.8)
[2025-06-16 10:49] LABS: Anion Gap 12.3 mEq/L (5-15); Blood Urea Nitrogen 20 mg/dl (7-17); Calcium 9.2 mg/dl (8.4-10.2); Carbon Dioxide 29 mmol/L (22.0-30.0); Chloride 106 mmol/L (98-107); Creatinine Clearance Estimated 28 mL/min (50-200); Creatinine,Serum 1.30 mg/dl (0.52-1.04); Estimated Glomerular Filt Rate 40 ml/min (>60); GFR (African American) 48 ML/MIN (>60); Glucose 90 mg/dl (74-100); Potassium 4.3 mmoL/L (3.5-5.1); Sodium 143 mmol/L (136-145)
== END 2025-06-16 23:59 | disposition home or self-care (01) ==
LOC: PREOP 09:59
PROVIDERS: PCP Internal Medicine Adolescent Medicine; Visit Provider Orthopaedic Surgery
DX: Z01.810 Encounter for preprocedural cardiovascular examination (principal); Z01.812 Encounter for preprocedural laboratory examination; R00.1 Bradycardia, unspecified; R94.31 Abnormal electrocardiogram [ECG] [EKG]
CPT/HCPCS: 80048; 85025; 93005

== ENCOUNTER 2025-06-20 10:01 | Day surgery (SDC) | payer MEDICARE, MEDICAID, SELFPAY ==
--- NOTE | 2025-06-16 09:17 | SUR.PREOP ---
Pt no show for PAT appointment. Unable to leave . Office notified.
[2025-06-16 13:15] VITALS: BMI 44.0
[2025-06-20 10:38] VITALS: BP 150/75; PULSE 63; RESP 18; TEMP 36.7; O2SAT 97
[2025-06-20] MEDS: LACTATED RINGERS 1000ML 1,000 ML 100 ML IV (10:46)
--- NOTE | 2025-06-20 12:21 | EXP.ANES.CKL ---
[facility] Disclaimer: The information contained in this section may have been updated after the patient was seen, as this information can be updated by other users. Medical History Sleep apnea History of COVID-19 History of gastroesophageal reflux (GERD) Hypothyroid Atrial fibrillation History of cataract Hyperlipidemia Hypertension History of lymphoma Edema feet Thyroid cancer Surgical History History of endometrial ablation 02-20-25 Dr. Segovia History of surgery heart cath - no stents H/O tubal ligation History of left cataract surgery H/O lumpectomy left History of cholecystectomy History of discectomy History of hip replacement [place] hip sx H/O thyroidectomy Status post hip surgery Family History Other Family history of diabetes mellitus Heart disease Stroke Social History Smoking Status: Never smoker second hand exposure: No alcohol intake: never substance use type: denies use current occupational status: retired Travel in the last 8 weeks?: None household members: spouse housing: house current occupational exposures/hazards: No caffeine: Yes Have you lived/traveled outside US in past 30 days?: No Contact w/someone who lives/traveled outside US past 30 days?: No Exposure to someone with infectious disease in past 14 days?: No Do you have a fever (greater than 100.4 F or 38 C)?: No Have you tested positive for COVID-19?: No Exposed to someone with COVID-19 in past 14 days?: No Do you have a sore throat?: No Do you have a cough?: No Do you have any weakness?: No Do you have any diarrhea?: No Are you experiencing any unusual bleeding?: No Do you have any muscle aches/pain?: No Do you have any abdominal pain?: No Are you experiencing loss of taste or smell?: No [facility] Anesthesia Checklist Patient Identification Patient Identification: Arm Band and Verbal (Name & ) Structural Data Admitted From: Home Planned Operative Procedure/s: Left carpal tunnel release Consent for Planned Operative Procedure(s) Verified: Yes Verified Documents: Surgical Consent NPO Status Verified Time NPO: 00:00 Additional verifications Anesthesia Reactions: No Hx Blood Transfusions: No Blood Transfusion Reaction: No Airway Assessment Mallampati Score:: Class II C-Spine Mobility Assessed: Yes TMJ Mobility Assessed: Yes Dentition: Good Dentition Neurological Assessment Level of Consciousness: Awake, Alert and Appropriate Hx Seizures: No Numbness or tingling in extremities: No Anesthesia Plan Anesthesia Risk discussed: Yes Anesthesia Plan: Verified ASA Class: II Anesthesia Type: MAC
[2025-06-20] MEDS: LIDOCAINE 1% W/EPI 1:100,000 20ML VIAL 20 ML (12:53)
--- NOTE | 2025-06-20 13:10 | P.OP_ITS ---
Date of procedure: 06/20/25 Pre-op Diagnosis:: Left carpal tunnel syndrome Post-op Diagnosis:: Same Procedure performed:: Left endoscopic carpal tunnel release Surgeon:: Jorge Alberto Adamson DO Development Planner(s):: Ralph REYES JUNIOR QA ANALYST:: Jeremiah Ash Anesthesia: MAC and local Estimated blood loss (mL): 0 Operative findings:: See dictation Operative note:: Patient notified preoperatively. Left wrist marked with a yes and my initials. Patient transported operative suite. Placed upon the operating bed with a hand table. Left upper extremity was prepped and draped normal sterile fashion. Once prepped and draped final operative timeout performed to identify proper patient procedure and extremity. Everyone involved in the case agreed. There were no counter indications to beginning. Did receive preoperative antibiotics. Marking pen was used to judy planned incision over the volar wrist crease. Esmarch was used to exsanguinate the extremity pneumatic tourniquet inflated to 250 mmHg. Skin knife was used to incise through skin careful dissection was taken down to identify the most proximal aspect of the transverse carpal ligament. Retractors were placed and the small dilator followed by the larger dilator were placed into the carpal tunnel. Followed by the 4.0 mm endoscopic sled. Camera was then placed into the carpal tunnel the end of the carpal tunnel was identified and hooked with an endoscopic probe. Rasp was used to remove the soft tissue from the undersurface. And then the hook blade was utilized for trans dissecting the transverse carpal ligament. This was completely released and directly visualized. Irrigation of the wound was performed. Skin closed with 4-0 Monocryl and Dermabond on the wrist. Sterile hand dressing placed patient waken from sedation taken recovery stable condition. Condition: stable Disposition: PACU Complications:: None apparent
[2025-06-20 13:15] VITALS: BP 117/60; PULSE 62; RESP 16; TEMP 36.2; O2SAT 95
[2025-06-20 13:30] VITALS: BP 117/60; PULSE 62; RESP 16; TEMP 36.2; O2SAT 95
[2025-06-20 13:45] VITALS: BP 132/74; PULSE 69; RESP 16; TEMP 36.2; O2SAT 98
== END 2025-06-20 13:54 | disposition home or self-care (01) ==
PROVIDERS: PCP Internal Medicine Adolescent Medicine; Visit Provider Orthopaedic Surgery
PROC: (CPT 64721; principal; 2025-06-20 11:30)
DX: G56.02 Carpal tunnel syndrome, left upper limb (principal); I48.91 Unspecified atrial fibrillation; Z86.16 Personal history of COVID-19; K21.9 Gastro-esophageal reflux disease without esophagitis; E78.5 Hyperlipidemia, unspecified; I10 Essential (primary) hypertension; E03.9 Hypothyroidism, unspecified; G47.30 Sleep apnea, unspecified; Z85.850 Personal history of malignant neoplasm of thyroid; Z79.890 Hormone replacement therapy; Z79.899 Other long term (current) drug therapy
CPT/HCPCS: 29848; 96374; J0690; J2003; J2004; J2250; J2704; J3010; J7120